=== PATIENT | female | born 1950 | race Caucasian/White ===

== ENCOUNTER 2016-12-25 12:53 | Inpatient (IN) | payer MEDICARE ==
[~2016-12-25] VITALS: Ht 152.4 cm; Wt 65.2 kg
[2016-12-25] VITALS (7 sets, daily range): BP systolic 118–168; BP diastolic 57–93; PULSE 109–123; RESP 18–22; TEMP 98.8–102.4; O2SAT 94–96
[~2016-12-25 12:53] MED LIST: DEXA1TAB PO; LEVE500 PO; LISI10TA3 PO; PANT40TA3 PO; SUPETAB20 PO; XARE10TA PO
--- NOTE | 2016-12-25 13:12 | PD ---
HPI Chief Complaint: Respiratory Distress Time Seen by Provider: 13:12 Travel History International Travel<30 days: No Contact w/Intl Traveler<30days: No Traveled to known affect area: No PFSH Past Medical History Hx Anticoagulant Therapy: Yes (XARELTO) Arthritis: No Asthma: No Autoimmune Disease: No Heart Rhythm Problems: No Cancer: Yes (LUNG) Cardiovascular Problems: Yes Chemotherapy: Yes Chest Pain: No Congestive Heart Failure: No COPD: Yes Cerebrovascular Accident: No Diabetes: No Diminished Hearing: No Endocrine: No Genitourinary: No Hepatitis: No Hiatal Hernia: No Immune Disorder: No Implanted Vascular Access Dvce: Yes (left upper chest wall port) Musculoskeletal: Yes Neurologic: Yes (APHASIA, RADIATION NECROSIS) Psychiatric: No Reproductive: No Respiratory: Yes Immunizations Current: Yes Migraines: No Radiation Therapy: Yes Seizures: Yes (2014 SEIZURE ACTIVITY) Sickle Cell Disease: No Sleep Apnea: No Thyroid Disease: No ?: Not Menopausal: Yes Tubal Ligation: Yes Past Surgical History Abdominal Surgery: No AICD: No Arteriovenous Shunt: No Cardiac Surgery: No Ear Surgery: No Endocrine Surgery: Yes Eye Surgery: No Genitourinary Surgery: No Gynecologic Surgery: Yes (HYSTERECTOMY) Hysterectomy: No Insulin Pump: No Joint Replacement: No Neurologic Surgery: Yes (LEFT BRAIN TUMOR DEC 2013) Oral Surgery: Yes (ROOT CANAL-PAST EVENT) Pacemaker: No Thoracic Surgery: No Tonsillectomy: Yes Other Surgery: Yes (LEFT BRAIN, TUBAL LIGATION, TONSILS) Social History Alcohol Use: No Tobacco Use: No (quit 2013) Substance Use: No Allergies-Medications (Allergen,Severity, Reaction): Coded Allergies: Contrast Media (Verified Allergy, Severe, hives, diff breathing, 11/18/16) Dilantin (Unverified Allergy, Severe, rash, 11/18/16) Iodine (Unverified Allergy, Unknown, 11/18/16) Reported Meds & Prescriptions Reported Meds & Active Scripts Active Lisinopril 10 Mg Tab 10 Mg PO DAILY Keppra (Levetiracetam) 500 Mg Tab 500 Mg PO HS Reported Super B Complex Maxi (B-Complex W/ Folic Acid) 1 Tab 1 Tab PO DAILY Dexamethasone 1 Mg Tab 1 Mg PO DAILY Pantoprazole (Pantoprazole Sodium) 40 Mg Tab 40 Mg PO DAILY Xarelto (Rivaroxaban) 10 Mg Tab 10 Mg PO DAILY Olivia Hernandez Dec 25, 2016 13:12
[2016-12-25] MEDS ORDERED: SODIUM CHLORIDE 0.9% FLUSH 5 ML FLUSH IVF PRN (13:30)
--- NOTE | 2016-12-25 13:34 | PD ---
HPI Chief Complaint: Respiratory Distress Time Seen by Provider: 13:17 Travel History International Travel<30 days: No Contact w/Intl Traveler<30days: No Traveled to known affect area: No History of Present Illness HPI This is a 66 year old female who presents to the emergency department sent from [facility] due to shortness of breath and cough. Pt. has a history of lung cancer and prior pulmonary embolism, and is on Xarelto. Pt. reports last evening she developed a dry cough that has been aggravating her throughout the night and today she felt short of breath, with difficulty catching her breath associated with labored breathing. She also has some chest pain, painful in her chest wall, worse with her cough. She denies a fever. She has been hospitalized with pneumonia in the past. PFSH Past Medical History Hx Anticoagulant Therapy: Yes (XARELTO) Arthritis: No Asthma: No Autoimmune Disease: No Heart Rhythm Problems: No Cancer: Yes (LUNG) Cardiovascular Problems: Yes Chemotherapy: Yes Chest Pain: No Congestive Heart Failure: No COPD: Yes Cerebrovascular Accident: No Diabetes: No Diminished Hearing: No Endocrine: No Genitourinary: No Hepatitis: No Hiatal Hernia: No Immune Disorder: No Implanted Vascular Access Dvce: Yes (left upper chest wall port) Musculoskeletal: Yes Neurologic: Yes (APHASIA, RADIATION NECROSIS) Psychiatric: No Reproductive: No Respiratory: Yes Immunizations Current: Yes Migraines: No Radiation Therapy: Yes Seizures: Yes (2014 SEIZURE ACTIVITY) Sickle Cell Disease: No Sleep Apnea: No Thyroid Disease: No ?: Not Menopausal: Yes Tubal Ligation: Yes Past Surgical History Abdominal Surgery: No AICD: No Arteriovenous Shunt: No Cardiac Surgery: No Ear Surgery: No Endocrine Surgery: Yes Eye Surgery: No Genitourinary Surgery: No Gynecologic Surgery: Yes (HYSTERECTOMY) Hysterectomy: No Insulin Pump: No Joint Replacement: No Neurologic Surgery: Yes (LEFT BRAIN TUMOR DEC 2013) Oral Surgery: Yes (ROOT CANAL-PAST EVENT) Pacemaker: No Thoracic Surgery: No Tonsillectomy: Yes Other Surgery: Yes (LEFT BRAIN, TUBAL LIGATION, TONSILS) Social History Alcohol Use: No Tobacco Use: No (quit 2013) Substance Use: No Allergies-Medications (Allergen,Severity, Reaction): Coded Allergies: Contrast Media (Verified Allergy, Severe, hives, diff breathing, 12/25/16) Dilantin (Unverified Allergy, Severe, rash, 12/25/16) Iodine (Unverified Allergy, Unknown, 12/25/16) Reported Meds & Prescriptions Reported Meds & Active Scripts Active Lisinopril 10 Mg Tab 10 Mg PO DAILY Keppra (Levetiracetam) 500 Mg Tab 500 Mg PO HS Reported Super B Complex Maxi (B-Complex W/ Folic Acid) 1 Tab 1 Tab PO DAILY Dexamethasone 1 Mg Tab 1 Mg PO DAILY Pantoprazole (Pantoprazole Sodium) 40 Mg Tab 40 Mg PO DAILY Xarelto (Rivaroxaban) 10 Mg Tab 10 Mg PO DAILY Review of Systems Except as stated in HPI: all other systems reviewed are Neg Physical Exam Narrative GENERAL:Frail SKIN: Warm and dry. HEAD: Atraumatic. Normocephalic. EYES: Pupils equal and round. No injection or drainage. ENT: Moist mucous membranes NECK: Trachea midline. CARDIOVASCULAR: Regular rate and rhythm. No murmur appreciated. RESPIRATORY: Tachypnea with diffuse rhonchi, increased work of breathing GASTROINTESTINAL: Abdomen soft, non-tender, nondistended. MUSCULOSKELETAL: No obvious deformities. NEUROLOGICAL: Oriented to person and place. No obvious cranial nerve deficits. Moving all extremities. expressive aphasia. Data Data Last Documented VS Vital Signs Date Time Temp Pulse Resp B/P Pulse Ox O2 Delivery O2 Flow Rate FiO2 12/25/16 14:35 102.4 12/25/16 13:37 118 20 168/93 96 Nasal Cannula 2 Orders Complete Blood Count With Diff (12/25/16 13:21) Comprehensive Metabolic Panel (12/25/16 13:21) B-Type Natriuretic Peptide (12/25/16 13:21) Act Partial Throm Time (Ptt) (12/25/16 13:21) Prothrombin Time / Inr (Pt) (12/25/16 13:21) Troponin I (12/25/16 13:21) Iv Access Insert/Monitor (12/25/16 13:21) Ecg Monitoring (12/25/16 13:21) Oximetry (12/25/16 13:21) Oxygen Administration (12/25/16 13:21) Chest, Single Ap (12/25/16 13:21) Sodium Chloride 0.9% Flush (Ns Flush) (12/25/16 13:30) Blood Culture (12/25/16 14:27) Lactic Acid (12/25/16 14:27) Vancomycin Inj (Vancomycin Inj) (12/25/16 14:30) Cefepime Inj (Maxipime Inj) (12/25/16 14:30) Urinalysis - C+S If Indicated (12/25/16 14:27) Influenzae A/B Antigen (12/25/16 14:30) Sodium Chlor 0.9% 1000 Ml Inj (Ns 1000 M (12/25/16 14:45) Sodium Chlor 0.9% 1000 Ml Inj (Ns 1000 M (12/25/16 14:45) Acetaminophen (Tylenol) (12/25/16 15:00) Vancomycin Inj (Vancomycin Inj) (12/25/16 15:00) Admit Order (Ed Use Only) (12/25/16 16:03) Labs Laboratory Tests Test 12/25/16 12/25/16 14:32 14:45 White Blood Count 4.8 TH/MM3 Red Blood Count 3.96 MIL/MM3 Hemoglobin 13.3 GM/DL Hematocrit 39.1 % Mean Corpuscular Volume 98.8 FL Mean Corpuscular Hemoglobin 33.6 PG Mean Corpuscular Hemoglobin 34.0 % Concent Red Cell Distribution Width 16.3 % Platelet Count 203 TH/MM3 Mean Platelet Volume 7.9 FL Neutrophils (%) (Auto) 77.5 % Lymphocytes (%) (Auto) 12.7 % Monocytes (%) (Auto) 8.0 % Eosinophils (%) (Auto) 0.2 % Basophils (%) (Auto) 1.6 % Neutrophils # (Auto) 3.7 TH/MM3 Lymphocytes # (Auto) 0.6 TH/MM3 Monocytes # (Auto) 0.4 TH/MM3 Eosinophils # (Auto) 0.0 TH/MM3 Basophils # (Auto) 0.1 TH/MM3 CBC Comment DIFF FINAL Differential Comment Prothrombin Time 11.9 SEC Prothromb Time International 1.1 RATIO Ratio Activated Partial 21.8 SEC Thromboplast Time Sodium Level 135 MEQ/L Potassium Level 4.2 MEQ/L Chloride Level 102 MEQ/L Carbon Dioxide Level 26.9 MEQ/L Anion Gap 6 MEQ/L Blood Urea Nitrogen 8 MG/DL Creatinine 0.76 MG/DL Estimat Glomerular Filtration 76 ML/MIN Rate Random Glucose 89 MG/DL Calcium Level 8.6 MG/DL Total Bilirubin 0.7 MG/DL Aspartate Amino Transf 56 U/L (AST/SGOT) Alanine Aminotransferase 40 U/L (ALT/SGPT) Alkaline Phosphatase 67 U/L Troponin I LESS THAN 0.02 NG/ML B-Type Natriuretic Peptide 42 PG/ML Total Protein 6.8 GM/DL Albumin 3.4 GM/DL Lactic Acid Level 1.0 mmol/L MDM Medical Decision Making Medical Screen Exam Complete: Yes Emergency Medical Condition: Yes Medical Record Reviewed: Yes (history of non-small cell lung cancer previously on chemotherapy by Dr. Weston.) Interpretation(s) Fever, tachycardia, hypoxic on room air, 94% on 2 L nasal cannula No leukocytosis Left shift Electrolytes are reassuring Troponin is normal BNP is normal Lactic acid is 1 Chest x-ray: Mild airspace disease in the right Differential Diagnosis Pneumonia, sepsis, pulmonary embolism, urinary tract infection Narrative Course This is a 66-year-old female who presents to the emergency department who has a history of non-small cell lung cancer. She evidently was told yesterday that she had a PET scan with more metastatic disease and she is going to be started on a new immune therapy by Dr. Weston. She is been increasingly short of breath over the past 2 days. She was placed on a monitor and an IV was established. She was found to have a fever of 102.4. Labs were obtained which demonstrated a left shift but are otherwise reassuring. Influenza was negative. Chest x- ray demonstrates some right sided lower airspace disease which may reflect pneumonia. Patient was given broad-spectrum antibiotics. Her and her daughter are pretty unclear as to when the last time she was on chemotherapy was. I think patient requires admission for continued antibiotics and monitoring. There was concern for pulmonary embolism on this patient. She is on Xarelto. Given the presence of fever a think it's less likely that her symptoms are being caused by a pulmonary embolism and more likely that they are infectious. I think it's reasonable to defer further imaging if she improves. She has an iodinated contrast allergy so we would need to pretreat her with steroids and Benadryl. Diagnosis Primary Impression: Sepsis Qualified Code: A41.9 - Sepsis, due to unspecified organism Admitting Information Admitting Physician Requests: it Peggy Sharma MD Dec 25, 2016 13:33
[2016-12-25] MEDS ORDERED: VANCOMYCIN INJ 1,000 MG in SODIUM CHLOR 0.9% 250 ML INJ 250 ML IV ONE ×2 (14:30→15:00)
[2016-12-25] MEDS ORDERED: CEFEPIME INJ 2,000 MG in SODIUM CHLORIDE 0.9% INJ 100 ML IV ONE (14:30)
--- NOTE | 2016-12-25 14:38 | RADRPT ---
EXAM DATE/TIME: 12/25/2016 14:07 [facility] COMPARISON: CHEST SINGLE AP, September 07, 2016, 3:48. INDICATIONS : Shortness of breath. MEDICAL HISTORY : Chronic obstructive pulmonary disease. Carcinoma, lung. SURGICAL HISTORY : [place] ENCOUNTER: Initial ACUITY: 1 day PAIN SCORE: Non-responsive. LOCATION: Bilateral chest FINDINGS: Minimal airspace disease is seen in the right lung base. Emphysematous changes are seen in the upper lung soto. There is no significant consolidation or evidence of congestion. Heart and mediastinal structures are stable. Left side [id number] remains in place. CONCLUSION: Mild air space disease right lung base which has the appearance of atelectasis. No other significant abnormality. Anthony Vásquez MD on December 25, 2016 at 14:35 Board Certified Radiologist. This report was verified electronically.
[2016-12-25 14:41] LABS: AUTOMATED NEUTROPHIL # 3.7 TH/MM3 (1.8-7.7); BASOPHIL # 0.1 TH/MM3 (0-0.2); BASOPHIL % 1.6 % (0.0-2.0); EOSINOPHIL % 0.2 % (0.0-4.0); HEMATOCRIT 39.1 % (35.0-46.0); HEMO FLAGS DIFF FINAL; LYMPH % 12.7 % (9.0-44.0); LYMPHOCYTE # 0.6 TH/MM3 (1.0-4.8); MEAN CELL VOLUME 98.8 FL (80.0-100.0); MEAN CORPUSCULAR HEMOGLOBIN 33.6 PG (27.0-34.0); NEUT % 77.5 % (16.0-70.0); PLATELET COUNT 203 TH/MM3 (150-450); RED BLOOD COUNT 3.96 MIL/MM3 (4.00-5.30); RED CELL DISTRIBUTION WIDTH 16.3 % (11.6-17.2); WHITE BLOOD COUNT 4.8 TH/MM3 (4.0-11.0)
[2016-12-25] MEDS ORDERED: SODIUM CHLOR 0.9% 1000 ML INJ 1,000 ML IV SCH ×2 (14:45)
[2016-12-25 14:55] LABS: INTERNATIONAL NORMALIZED RATIO 1.1 RATIO; PROTHROMBIN TIME - PATIENT 11.9 SEC (9.8-11.6)
[2016-12-25 15:00] LABS: APTT (PATIENT) 21.8 SEC (24.3-30.1)
[2016-12-25] MEDS ORDERED: ACETAMINOPHEN 500 MG CPLT PO ONE (15:00)
[2016-12-25 15:35] LABS: ALKALINE PHOSPHATASE 67 U/L (45-117); ALT (GPT) 40 U/L (10-53); ANION GAP 6 MEQ/L (5-15); AST (GOT) 56 U/L (15-37); BICARBONATE 26.9 MEQ/L (21.0-32.0); BLOOD UREA NITROGEN 8 MG/DL (7-18); CHLORIDE 102 MEQ/L (98-107); GLOMERULAR FILTRATION RATE 76 ML/MIN (>89); SODIUM (NA) 135 MEQ/L (136-145); TOTAL BILIRUBIN ADULT 0.7 MG/DL (0.2-1.0)
[2016-12-25 15:38] LABS: POTASSIUM 4.2 MEQ/L (3.5-5.1)
[2016-12-25] MEDS ORDERED: ONDANSETRON HCL 4 MG/2 ML VIAL IVP PRN (16:30)
[2016-12-25] MEDS ORDERED: MAGNESIUM HYDROXIDE SUSP 30 ML CUP PO PRN (16:30)
[2016-12-25] MEDS ORDERED: NALOXONE HCL 0.4 MG/ML AMP IV PRN (16:30)
[2016-12-25] MEDS ORDERED: BISACODYL 10 MG SUPP PR PRN (16:30)
--- NOTE | 2016-12-25 16:50 | HHI.HP ---
HPI Service CP Hospitalists Primary Care Physician Non-Staff Admission Diagnosis sepsis Chief Complaint: Cough and SOB Travel History International Travel<30 Days: No Contact w/Intl Traveler <30 Da: No Traveled to Known Affected Are: No History of Present Illness Mrs. Romero is a 66 y/o female with metastatic non-small cell lung cancer s/p craniotomy with stereotactic radiation in 2013 and radiation therapy to the lung in 2013, previously found to have disease in the chest outside the previous radiation field and was treated with chemo and is on maintenance chemo with Alimta and Avastin. Pt follows with Dr. Weston. She also has hx of radiation necrosis of the brain in 2014 and pulmonary embolism on Xarelto. Pt was recently admitted to [facility] in 10/2016 with expressive aphasia. MRI findings at that time were felt to be stable from April 2016 but diffusion weighted images were still of concern for an acute CVA event in left frontal lobe near surgical bed. EEG at that time also showed epileptiform spikes and was treated as seizure activity and Keppra was added by Neurology. Pt states that she was seen by her Oncologist, Dr. Weston, yesterday for followup on PET/CT results but these are unavailable to me at this time. Pt presented to the ED on 12/25/16 from [facility] due to shortness of breath and cough which started last night. Pt reported yesterday evening she developed a dry cough that has been aggravating her throughout the night and today she felt short of breath, with difficulty catching her breath associated with labored breathing. She also has some chest wall discomfort which is worse with coughing. Pt had a noted fever at admission of 102.4. CXR at admission noted mild air space disease right lung base which has the appearance of atelectasis. She was given Vancomycin and Cefepime in the ER. At the time of examination pt is overall feeling better. Still with the cough but not feeling as SOB. Review of Systems Constitutional: COMPLAINS OF: Fever, Chills Respiratory: COMPLAINS OF: Cough, Shortness of breath Cardiovascular: COMPLAINS OF: Chest pain, DENIES: Palpitations, Dyspnea on Exertion, Lower Extremity Edema Gastrointestinal: DENIES: Abdominal pain, Constipation, Nausea, Vomiting Genitourinary: DENIES: Urinary frequency, Hematuria, Dysuria Integumentary: DENIES: Rash Neurologic: COMPLAINS OF: Speech Problems, DENIES: Headache Psychiatric: DENIES: Confusion Past Family Social History Past Medical History Metastatic Non-small cell lung cancer s/p craniotomy with stereotactic radiation in 2014 and radiation therapy to the lung in 2013. Recently found to have disease in the chest outside the previous radiation field and was treated with chemo and is on maintenance chemo. Hx of radiation necrosis of the brain in 2014 Pulmonary embolism on Xarelto GERD Past Surgical History Craniotomy in 2013 [id number] placement in 2014 Tonsillectomy Dilation and curettage Bilateral tubal ligation Reported Medications Lisinopril 10 Mg Tab 10 Mg PO DAILY Keppra (Levetiracetam) 500 Mg Tab 500 Mg PO HS Super B Complex Maxi (B-Complex W/ Folic Acid) 1 Tab 1 Tab PO DAILY Dexamethasone 1 Mg Tab 1 Mg PO DAILY Pantoprazole (Pantoprazole Sodium) 40 Mg Tab 40 Mg PO DAILY Xarelto (Rivaroxaban) 10 Mg Tab 10 Mg PO DAILY Allergies: Coded Allergies: Contrast Media (Verified Allergy, Severe, hives, diff breathing, 12/25/16) Dilantin (Unverified Allergy, Severe, rash, 12/25/16) Iodine (Unverified Allergy, Unknown, 12/25/16) Family History Noncontributory Social History Denies any alcohol, tobacco or illicit drug use Physical Exam Vital Signs Vital Signs Date Time Temp Pulse Resp B/P Pulse Ox O2 Delivery O2 Flow Rate FiO2 12/25/16 16:06 100.0 123 18 138/65 94 Nasal Cannula 2 12/25/16 14:35 102.4 12/25/16 13:37 118 20 168/93 96 Nasal Cannula 2 12/25/16 13:37 22 96 Nasal Cannula 2 12/25/16 13:37 114 22 94 Nasal Cannula 2 12/25/16 13:37 96 Nasal Cannula 2 Physical Exam GENERAL: This is a well-nourished, well-developed patient, in no apparent distress. HEENT: Atraumatic. Normocephalic. No temporal or scalp tenderness. No scleral icterus. Airway patent. NECK: Trachea midline, supple, nontender. CARDIO: Regular. RESP: Rhonchi throughout that cleared with cough, diminished breath sounds bilaterally ABD: +BS, soft, non-tender, nondistended. EXT: Extremities without clubbing, cyanosis, or edema. NEURO: Awake and alert. Mild expressive aphasia. Five out of 5 muscle strength in all muscle groups. Laboratory Laboratory Tests Test 12/25/16 12/25/16 14:32 14:45 White Blood Count 4.8 Red Blood Count 3.96 Hemoglobin 13.3 Hematocrit 39.1 Mean Corpuscular Volume 98.8 Mean Corpuscular Hemoglobin 33.6 Mean Corpuscular Hemoglobin 34.0 Concent Red Cell Distribution Width 16.3 Platelet Count 203 Mean Platelet Volume 7.9 Neutrophils (%) (Auto) 77.5 Lymphocytes (%) (Auto) 12.7 Monocytes (%) (Auto) 8.0 Eosinophils (%) (Auto) 0.2 Basophils (%) (Auto) 1.6 Neutrophils # (Auto) 3.7 Lymphocytes # (Auto) 0.6 Monocytes # (Auto) 0.4 Eosinophils # (Auto) 0.0 Basophils # (Auto) 0.1 CBC Comment DIFF FINAL Differential Comment Prothrombin Time 11.9 Prothromb Time International 1.1 Ratio Activated Partial 21.8 Thromboplast Time Sodium Level 135 Potassium Level 4.2 Chloride Level 102 Carbon Dioxide Level 26.9 Anion Gap 6 Blood Urea Nitrogen 8 Creatinine 0.76 Estimat Glomerular Filtration 76 Rate Random Glucose 89 Calcium Level 8.6 Total Bilirubin 0.7 Aspartate Amino Transf 56 (AST/SGOT) Alanine Aminotransferase 40 (ALT/SGPT) Alkaline Phosphatase 67 Troponin I LESS THAN 0.02 B-Type Natriuretic Peptide 42 Total Protein 6.8 Albumin 3.4 Lactic Acid Level 1.0 Date/Time Procedure Status Source Growth 12/25/16 15:30 Influenza Types A,B Antigen (STANISLAV) - Final Complete Nasal Washing NEGATIVE FOR FLU A AND B ANTIGEN.... 12/25/16 14:54 Aerobic Blood Culture Received Blood Peripheral Pending 12/25/16 14:54 Anaerobic Blood Culture Received Blood Peripheral Pending Result Diagram: 12/25/16 1432 12/25/16 1432 Imaging Last Impressions Chest X-Ray 12/25/16 1321 Signed Impressions: Service Date/Time: December 14:07 - CONCLUSION: Mild air space disease right lung base which has the appearance of atelectasis. No other significant abnormality. Anthony Vásquez MD Septic Shock Reassessment Heart: Regular rate and rhythm Lungs: Course Skin: Warm Capillary Refill: <2 seconds Assessment and Plan Problem List: (1) Pneumonia Status: Acute Plan: - Pt presented to the ED on 12/25/16 with complaints of shortness of breath and cough which started last night. - Pt reported yesterday evening she developed a dry cough that has been aggravating her throughout the night and today she felt short of breath, with difficulty catching her breath associated with labored breathing. - She also has some chest wall discomfort which is worse with coughing. - Pt had a noted fever at admission of 102.4. - CXR at admission noted mild air space disease right lung base which has the appearance of atelectasis. - She was given Vancomycin and Cefepime in the ER. - Vancomycin and Cefepime to be continued - Duonebs PRN - IVF - At the time of examination pt is overall feeling better. Still with the cough but not feeling as SOB. - Blood culture and sputum cultures ordered - Urine for legionella and pneumococcal Ab - Labs in AM - CXR in AM - Supportive care - DVT prophylaxis (2) Non-small cell carcinoma of lung, stage 4 Status: Chronic Plan: - Pt with metastatic Non-small cell lung cancer s/p craniotomy with stereotactic radiation in 2013 and radiation therapy to the lung in 2014. Recently found to have disease in the chest outside the previous radiation field and was treated with chemo and is on maintenance chemo. - Pt follows with Dr. Weston and he was informed on her admission but not formally consulted at this time. (3) HTN (hypertension) Status: Chronic Plan: - Cont. Lisinopril - Monitor vitals (4) Seizure Status: Chronic Plan: - Cont. Keppra - Check levels (5) Hx pulmonary embolism Status: Chronic Plan: - Cont. Xarelto Assessment and Plan Patient examined. Assessment and plan formulated with Tonie Lassiter PA-C. I agree with the above. Physician Certification 2 Midnight Certification Type: Admission for Inpatient Services Order for Inpatient Services The services are ordered in accordance with Medicare regulations or non- Medicare payer requirements, as applicable. In the case of services not specified as inpatient-only, they are appropriately provided as inpatient services in accordance with the 2-midnight benchmark. Estimated LOS (days): 3 3 days is the estimated time the patient will need to remain in the hospital, assuming treatment plan goals are met and no additional complications. Post-Hospital Plan: Not yet determined Tonie Lassiter Dec 25, 2016 16:50 Roque Lucas DO Dec 31, 2016 08:29
[2016-12-25] MEDS: NS + KCL 20 MEQ INJ 1,000 ML IV SCH (17:33)
[2016-12-25] MEDS: SODIUM CHLORIDE 0.9% FLUSH 5 ML FLUSH FLUSH SCH (21:00)
[2016-12-25] MEDS: levETIRAcetam 500 MG TAB PO SCH (21:06)
[2016-12-26] VITALS (10 sets, daily range): BP systolic 94–185; BP diastolic 54–80; PULSE 94–137; RESP 18–23; TEMP 95.4–103.3; O2SAT 92–100
[2016-12-26] MEDS: NS + KCL 20 MEQ INJ 1,000 ML IV SCH (04:25)
[2016-12-26] MEDS: ACETAMINOPHEN 325 MG TAB PO PRN (05:47)
[2016-12-26] MEDS: CEFEPIME INJ 1,000 MG in SODIUM CHLORIDE 0.9% INJ 100 ML IV SCH ×2 (05:47→17:53)
[2016-12-26] MEDS: VANCOMYCIN INJ 1,000 MG in SODIUM CHLOR 0.9% 250 ML INJ 250 ML IV SCH ×2 (05:48→17:53)
[2016-12-26 07:17] LABS: AUTOMATED NEUTROPHIL # 3.8 TH/MM3 (1.8-7.7); BASOPHIL % 0.5 % (0.0-2.0); EOSINOPHIL % 0.1 % (0.0-4.0); HEMATOCRIT 38.5 % (35.0-46.0); HEMO FLAGS DIFF FINAL; LYMPH % 13.5 % (9.0-44.0); LYMPHOCYTE # 0.7 TH/MM3 (1.0-4.8); MEAN CELL VOLUME 95.9 FL (80.0-100.0); MEAN CORPUSCULAR HEMOGLOBIN 33.5 PG (27.0-34.0); MEAN CORPUSCULAR HGB CONC 34.9 % (32.0-36.0); MONO % 16.1 % (0.0-8.0); NEUT % 69.8 % (16.0-70.0); PLATELET COUNT 150 TH/MM3 (150-450); RED BLOOD COUNT 4.02 MIL/MM3 (4.00-5.30); RED CELL DISTRIBUTION WIDTH 16.4 % (11.6-17.2); WHITE BLOOD COUNT 5.5 TH/MM3 (4.0-11.0)
[2016-12-26 07:31] LABS: BICARBONATE 23.1 MEQ/L (21.0-32.0); MAGNESIUM 1.6 MG/DL (1.5-2.5); POTASSIUM 3.2 MEQ/L (3.5-5.1)
--- NOTE | 2016-12-26 09:55 | RADRPT ---
EXAM DATE/TIME: 12/26/2016 09:31 [facility] COMPARISON: CHEST PA & LAT, September 08, 2016, 8:42. INDICATIONS : Short of breath. MEDICAL HISTORY : Chronic obstructive pulmonary disease. Carcinoma, lung. SURGICAL HISTORY : [place] ENCOUNTER: Subsequent ACUITY: 2 days PAIN SCORE: 0/10 LOCATION: Bilateral chest FINDINGS: PA and lateral views of the chest. Left-sided [id number]-[id number] remains in place. Bilateral lower lung zo ne pulmonary parenchymal opacity with predominantly linear configuration, slightly increased in sever ity at the right lung base, unchanged on the left. No evidence of pleural effusion or pneumothorax. C ardiomediastinal silhouette within normal limits. CONCLUSION: Chronic lower lung zone parenchymal pulmonary opacity indicating scarring or chronic lung disease. Sl ight increase on the right, unchanged on the left. Vicente Decker MD on December 26, 2016 at 9:51 Board Certified Radiologist. This report was verified electronically.
[2016-12-26] MEDS: LISINOPRIL 10 MG TAB PO SCH (10:23)
[2016-12-26] MEDS: DEXAMETHASONE 0.5 MG TAB PO SCH (10:23)
[2016-12-26] MEDS: SODIUM CHLORIDE 0.9% FLUSH 5 ML FLUSH FLUSH SCH ×2 (10:23→21:00)
[2016-12-26] MEDS: RIVAROXABAN 10 MG TAB PO SCH (10:24)
[2016-12-26] MEDS: VITAMIN B CMPLX/VITC/FOLIC AC CAP PO SCH (10:24)
[2016-12-26] MEDS: PANTOPRAZOLE SOD 40 MG DELAYED RELEASE TAB PO SCH (10:24)
--- NOTE | 2016-12-26 13:45 | HHI.PR ---
Subjective Remarks decreased cough and SOB Objective Vitals Vital Signs Date Time Temp Pulse Resp B/P Pulse Ox O2 Delivery O2 Flow Rate FiO2 12/26/16 12:10 95.4 94 20 94/54 100 12/26/16 10:01 93 Nasal Cannula 3.00 12/26/16 08:08 98.7 119 20 117/60 92 12/26/16 07:00 99.1 12/26/16 06:16 101.1 12/26/16 05:30 103.3 120 23 169/79 93 12/26/16 00:30 100.3 115 23 185/80 95 12/25/16 19:46 98.8 109 18 139/68 96 Nasal Cannula 2 12/25/16 19:08 94 Nasal Cannula 2.00 12/25/16 17:31 112 18 118/57 94 Nasal Cannula 2 12/25/16 16:57 94 Nasal Cannula 2.00 12/25/16 16:06 100.0 123 18 138/65 94 Nasal Cannula 2 12/25/16 14:35 102.4 12/25/16 12/25/16 12/26/16 14:59 22:59 06:59 Intake Total 0 ml Balance 0 ml Intake Oral 0 ml # Voids 2 # Bowel Movements 0 Result Diagram: 12/26/16 0644 12/26/16 0644 Imaging Last Impressions Chest X-Ray 12/25/16 1321 Signed Impressions: Service Date/Time: December 14:07 - CONCLUSION: Mild air space disease right lung base which has the appearance of atelectasis. No other significant abnormality. Anthony Vásquez MD Objective Remarks GENERAL: This is a well-nourished, well-developed patient, in no apparent distress. CARDIOVASCULAR: Regular rate and rhythm without murmurs, gallops, or rubs. RESPIRATORY: Clear to auscultation. Breath sounds equal bilaterally. No wheezes , rales, or rhonchi. GASTROINTESTINAL: Abdomen soft, non-tender, nondistended. Normal active bowel sounds MUSCULOSKELETAL: Extremities without clubbing, cyanosis, or edema. NEURO: Alert & Oriented x4 to person, place, time, situation. Moves all ext x4 A/P Problem List: (1) Pneumonia Status: Acute Plan: - Pt presented to the ED on 12/25/16 with complaints of shortness of breath and cough which started last night. - Pt reported yesterday evening she developed a dry cough that has been aggravating her throughout the night and today she felt short of breath, with difficulty catching her breath associated with labored breathing. - She also has some chest wall discomfort which is worse with coughing. - Pt had a noted fever at admission of 102.4. - CXR at admission noted mild air space disease right lung base which has the appearance of atelectasis. - She was given Vancomycin and Cefepime in the ER. - CXR (12/26/16) --> chronic bibasilar scarring - continue Vancomycin and Cefepime (12/25 - present) - if pt remains stable, will likely convert to PO abx 12/27 and discharge 12/28 - Duonebs PRN - Blood culture (12/25/16) --> NGTD - anticipate d/c to home in next 1-2 days - DVT prophylaxis (2) Non-small cell carcinoma of lung, stage 4 Status: Chronic Plan: - Pt with metastatic Non-small cell lung cancer s/p craniotomy with stereotactic radiation in 2013 and radiation therapy to the lung in 2013. Recently found to have disease in the chest outside the previous radiation field and was treated with chemo and is on maintenance chemo. - Pt follows with Dr. Weston and he was informed on her admission but not formally consulted at this time. (3) HTN (hypertension) Status: Chronic Plan: - Cont. Lisinopril - Monitor vitals (4) Seizure Status: Chronic Plan: - Cont. Keppra - Check levels (5) Hx pulmonary embolism Status: Chronic Plan: - Cont. Roque Mancuso DO Dec 26, 2016 13:45
[2016-12-26] MEDS: RESP: ALBUTEROL 2.5 MG/IPRATROPIUM 0.5 MG NEB (PRN) NEB (14:07)
--- NOTE | 2016-12-26 14:21 | EKG ---
Date Performed: 12/25/2016 Time Performed: 19:41:51 PTAGE: 66 years EKG: SINUS TACHYCARDIA LOW QRS VOLTAGE IN PRECORDIAL LEADS ABNORMAL RHYTHM ECG Compared to PREVIOUS TRACING the anterolateral T wave changes are new PREVIOUS TRACIN11/18/2016 1 0.23 DOCTOR: Krissy Diggs Interpretating Date/Time 12/26/2016 14:20:02
[2016-12-26] MEDS: levETIRAcetam 500 MG TAB PO SCH (22:20)
[2016-12-27] VITALS (7 sets, daily range): BP systolic 108–130; BP diastolic 55–65; PULSE 88–115; RESP 18–20; TEMP 96.7–100.7; O2SAT 93–97
[2016-12-27] MEDS: RESP: ALBUTEROL 2.5 MG/IPRATROPIUM 0.5 MG NEB (PRN) NEB (03:39)
[2016-12-27] MEDS: CEFEPIME INJ 1,000 MG in SODIUM CHLORIDE 0.9% INJ 100 ML IV SCH ×2 (06:27→17:34)
[2016-12-27] MEDS: VANCOMYCIN INJ 1,000 MG in SODIUM CHLOR 0.9% 250 ML INJ 250 ML IV SCH ×2 (06:28→18:22)
[2016-12-27] MEDS: LISINOPRIL 10 MG TAB PO SCH (10:07)
[2016-12-27] MEDS: SODIUM CHLORIDE 0.9% FLUSH 5 ML FLUSH FLUSH SCH ×2 (10:07→22:43)
[2016-12-27] MEDS: DEXAMETHASONE 0.5 MG TAB PO SCH (10:07)
[2016-12-27] MEDS: RIVAROXABAN 10 MG TAB PO SCH (10:07)
[2016-12-27] MEDS: VITAMIN B CMPLX/VITC/FOLIC AC CAP PO SCH (10:07)
[2016-12-27] MEDS: PANTOPRAZOLE SOD 40 MG DELAYED RELEASE TAB PO SCH (10:07)
[2016-12-27] MEDS: ACETAMINOPHEN 325 MG TAB PO PRN (11:48)
--- NOTE | 2016-12-27 14:25 | HHI.PR ---
Subjective Remarks T = 100.7F Pt denies cough, or dysuria. Pt denies fever or chills. Pt is tolerating PO intake. Objective Vitals Vital Signs Date Time Temp Pulse Resp B/P Pulse Ox O2 Delivery O2 Flow Rate FiO2 12/27/16 12:16 100.7 114 20 116/65 96 12/27/16 07:30 97.4 100 20 125/58 94 12/27/16 05:30 99.5 115 18 115/59 94 12/27/16 03:42 97 Nasal Cannula 3.00 12/27/16 00:45 99.9 93 19 108/59 94 12/26/16 20:45 99.0 110 18 150/65 95 12/26/16 16:24 96.5 110 20 103/55 92 12/26/16 14:45 2.00 12/26/16 12/26/16 12/27/16 15:00 23:00 07:00 Intake Total 501 ml 900 ml Balance 501 ml 900 ml Intake Oral 501 ml 900 ml # Voids 2 4 # Bowel Movements 0 0 Result Diagram: 12/26/16 0644 12/26/16 0644 Imaging Last Impressions Chest X-Ray 12/26/16 0800 Signed Impressions: Service Date/Time: Monday, December 26, 2016 09:31 - CONCLUSION: Chronic lower lung zone parenchymal pulmonary opacity indicating scarring or chronic lung disease. Slight increase on the right, unchanged on the left. Vicente Decker MD Objective Remarks GENERAL: This is a well-nourished, well-developed patient, in no apparent distress. CARDIOVASCULAR: Regular rate and rhythm without murmurs, gallops, or rubs. RESPIRATORY: Clear to auscultation. Breath sounds equal bilaterally. No wheezes , rales, or rhonchi. GASTROINTESTINAL: Abdomen soft, non-tender, nondistended. Normal active bowel sounds MUSCULOSKELETAL: Extremities without clubbing, cyanosis, or edema. NEURO: Alert & Oriented x4 to person, place, time, situation. Moves all ext x4 A/P Problem List: (1) Pneumonia Status: Acute Plan: - Pt presented to the ED on 12/25/16 with complaints of shortness of breath and cough which started night prior to admission - Pt reported that the evening prior to admission she developed a dry cough that has been aggravating her throughout the night and today she felt short of breath, with difficulty catching her breath associated with labored breathing. - She also has some chest wall discomfort which is worse with coughing. - Pt had a noted fever at admission of 102.4. - CXR at admission noted mild air space disease right lung base which has the appearance of atelectasis. - She was given Vancomycin and Cefepime in the ER. - CXR (12/26/16) --> chronic bibasilar scarring - continue Vancomycin and Cefepime (12/25 - present) - recurrent fever at Noon (12/27/16) 100.7 - Duonebs PRN - Blood culture (12/25/16) --> no growth at 2 days - continue current treatment plan, observe - DVT prophylaxis (2) Non-small cell carcinoma of lung, stage 4 Status: Chronic Plan: - Pt with metastatic Non-small cell lung cancer s/p craniotomy with stereotactic radiation in 2013 and radiation therapy to the lung in 2013. Recently found to have disease in the chest outside the previous radiation field and was treated with chemo and is on maintenance chemo. - Pt follows with Dr. Weston and he was informed on her admission but not formally consulted at this time. (3) HTN (hypertension) Status: Chronic Plan: - Cont. Lisinopril - Monitor vitals (4) Seizure Status: Chronic Plan: - Cont. Keppra - Check levels (5) Hx pulmonary embolism Status: Chronic Plan: - Cont. Roque Mancuso DO Dec 27, 2016 14:25
[2016-12-27 17:05] LABS: BICARBONATE 24.4 MEQ/L (21.0-32.0); POTASSIUM 3.9 MEQ/L (3.5-5.1)
[2016-12-27] MEDS: levETIRAcetam 500 MG TAB PO SCH (22:43)
[2016-12-28] VITALS (8 sets, daily range): BP systolic 115–142; BP diastolic 64–75; PULSE 84–101; RESP 20; TEMP 96.6–98.7; O2SAT 92–97
[2016-12-28] MEDS: SODIUM CHLORIDE 0.9% FLUSH 5 ML FLUSH FLUSH PRN (05:40)
[2016-12-28] MEDS: CEFEPIME INJ 1,000 MG in SODIUM CHLORIDE 0.9% INJ 100 ML IV SCH ×2 (05:40→17:19)
[2016-12-28] MEDS: VANCOMYCIN INJ 1,000 MG in SODIUM CHLOR 0.9% 250 ML INJ 250 ML IV SCH ×2 (06:43→18:24)
[2016-12-28] MEDS: LISINOPRIL 10 MG TAB PO SCH (09:20)
[2016-12-28] MEDS: SODIUM CHLORIDE 0.9% FLUSH 5 ML FLUSH FLUSH SCH ×2 (09:20→19:37)
[2016-12-28] MEDS: VITAMIN B CMPLX/VITC/FOLIC AC CAP PO SCH (09:21)
[2016-12-28] MEDS: PANTOPRAZOLE SOD 40 MG DELAYED RELEASE TAB PO SCH (09:21)
[2016-12-28] MEDS: DEXAMETHASONE 0.5 MG TAB PO SCH (09:21)
[2016-12-28] MEDS: RIVAROXABAN 10 MG TAB PO SCH (09:21)
[2016-12-28 09:49] LABS: AUTOMATED NEUTROPHIL # 1.9 TH/MM3 (1.8-7.7); BASOPHIL % 0.6 % (0.0-2.0); EOSINOPHIL % 0.4 % (0.0-4.0); HEMATOCRIT 34.5 % (35.0-46.0); HEMO FLAGS DIFF FINAL; LYMPH % 24.2 % (9.0-44.0); LYMPHOCYTE # 0.8 TH/MM3 (1.0-4.8); MEAN CELL VOLUME 97.7 FL (80.0-100.0); MEAN CORPUSCULAR HEMOGLOBIN 32.8 PG (27.0-34.0); MEAN CORPUSCULAR HGB CONC 33.5 % (32.0-36.0); MONO % 14.8 % (0.0-8.0); PLATELET COUNT 147 TH/MM3 (150-450); RED BLOOD COUNT 3.53 MIL/MM3 (4.00-5.30); RED CELL DISTRIBUTION WIDTH 16.2 % (11.6-17.2); WHITE BLOOD COUNT 3.2 TH/MM3 (4.0-11.0)
[2016-12-28] MEDS: RESP: ALBUTEROL 2.5 MG/IPRATROPIUM 0.5 MG NEB (PRN) NEB (10:32)
[2016-12-28 10:49] LABS: BICARBONATE 24.9 MEQ/L (21.0-32.0); POTASSIUM 3.4 MEQ/L (3.5-5.1)
--- NOTE | 2016-12-28 12:39 | HHI.PR ---
Subjective Remarks decreased SOB, decreased cough from admission Objective Vitals Vital Signs Date Time Temp Pulse Resp B/P Pulse Ox O2 Delivery O2 Flow Rate FiO2 12/28/16 10:32 92 Nasal Cannula 2.00 12/28/16 07:59 98.0 84 20 115/75 97 12/28/16 04:39 97.0 86 20 128/73 96 12/28/16 00:34 98.7 101 20 131/75 92 12/27/16 21:52 Nasal Cannula 3.00 12/27/16 20:00 96.7 88 20 113/55 96 12/27/16 15:37 97.0 104 20 130/56 93 12/27/16 12/27/16 12/28/16 15:00 23:00 07:00 Intake Total 111 ml Balance 111 ml IV Total 111 ml # Voids 3 1 # Bowel Movements 1 Result Diagram: 12/28/16 0840 12/28/16 0840 Imaging Last Impressions Chest X-Ray 12/26/16 0800 Signed Impressions: Service Date/Time: Monday, December 26, 2016 09:31 - CONCLUSION: Chronic lower lung zone parenchymal pulmonary opacity indicating scarring or chronic lung disease. Slight increase on the right, unchanged on the left. Vicente Decker MD Objective Remarks GENERAL: This is a well-nourished, well-developed patient, in no apparent distress. CARDIOVASCULAR: Regular rate and rhythm without murmurs, gallops, or rubs. RESPIRATORY: Clear to auscultation. Breath sounds equal bilaterally. No wheezes , rales, or rhonchi. GASTROINTESTINAL: Abdomen soft, non-tender, nondistended. Normal active bowel sounds MUSCULOSKELETAL: Extremities without clubbing, cyanosis, or edema. NEURO: Alert & Oriented x4 to person, place, time, situation. Moves all ext x4 A/P Problem List: (1) Pneumonia Status: Acute Plan: - Pt presented to the ED on 12/25/16 with complaints of shortness of breath and cough which started night prior to admission - Pt reported that the evening prior to admission she developed a dry cough that has been aggravating her throughout the night and today she felt short of breath, with difficulty catching her breath associated with labored breathing. - She also has some chest wall discomfort which is worse with coughing. - Pt had a noted fever at admission of 102.4. - CXR at admission noted mild air space disease right lung base which has the appearance of atelectasis. - She was given Vancomycin and Cefepime in the ER. - CXR (12/26/16) --> chronic bibasilar scarring - continue Vancomycin and Cefepime (12/25 - present), will likely decelerate antibiotic treatment 12/29 - recurrent fever at Noon (12/27/16) 100.7 - Duonebs PRN - Blood culture (12/25/16) --> no growth at 3 days - continue current treatment plan, observe - DVT prophylaxis (2) Non-small cell carcinoma of lung, stage 4 Status: Chronic Plan: - Pt with metastatic Non-small cell lung cancer s/p craniotomy with stereotactic radiation in 2013 and radiation therapy to the lung in 2013. Recently found to have disease in the chest outside the previous radiation field and was treated with chemo and is on maintenance chemo. - Pt follows with Dr. Weston and he was informed on her admission but not formally consulted at this time. (3) HTN (hypertension) Status: Chronic Plan: - Cont. Lisinopril - Monitor vitals (4) Seizure Status: Chronic Plan: - Cont. Keppra - keppra level subtherapeutic 4.5 (12/26/16) - repeat keppra level in AM, consider increasing current dose (5) Hx pulmonary embolism Status: Chronic Plan: - Cont. Roque Mancuso DO Dec 28, 2016 12:39
[2016-12-28] MEDS ORDERED: POTASSIUM CHLORIDE 20 MEQ CONTROLLED RELEASE TAB PO ONE (12:45)
[2016-12-28] MEDS: levETIRAcetam 500 MG TAB PO SCH (19:37)
[2016-12-29] VITALS (8 sets, daily range): BP systolic 125–168; BP diastolic 63–88; PULSE 88–109; RESP 20; TEMP 95.6–98.8; O2SAT 93–97
[2016-12-29] MEDS: SODIUM CHLORIDE 0.9% FLUSH 5 ML FLUSH FLUSH PRN (05:42)
[2016-12-29] MEDS: CEFEPIME INJ 1,000 MG in SODIUM CHLORIDE 0.9% INJ 100 ML IV SCH (05:42)
[2016-12-29] MEDS: VANCOMYCIN INJ 1,000 MG in SODIUM CHLOR 0.9% 250 ML INJ 250 ML IV SCH (06:37)
[2016-12-29 08:01] LABS: AUTOMATED NEUTROPHIL # 1.5 TH/MM3 (1.8-7.7); BASOPHIL % 0.3 % (0.0-2.0); EOSINOPHIL % 0.8 % (0.0-4.0); HEMATOCRIT 33.8 % (35.0-46.0); HEMO FLAGS DIFF FINAL; LYMPH % 28.1 % (9.0-44.0); LYMPHOCYTE # 0.8 TH/MM3 (1.0-4.8); MEAN CORPUSCULAR HEMOGLOBIN 33.3 PG (27.0-34.0); MONO % 15.4 % (0.0-8.0); NEUT % 55.4 % (16.0-70.0); PLATELET COUNT 133 TH/MM3 (150-450); RED BLOOD COUNT 3.46 MIL/MM3 (4.00-5.30); WHITE BLOOD COUNT 2.8 TH/MM3 (4.0-11.0)
[2016-12-29 08:30] LABS: BICARBONATE 27.7 MEQ/L (21.0-32.0); MAGNESIUM 1.9 MG/DL (1.5-2.5); POTASSIUM 3.5 MEQ/L (3.5-5.1)
[2016-12-29] MEDS: SODIUM CHLORIDE 0.9% FLUSH 5 ML FLUSH FLUSH SCH ×2 (09:00→21:20)
[2016-12-29] MEDS: DEXAMETHASONE 0.5 MG TAB PO SCH (09:14)
[2016-12-29] MEDS: RIVAROXABAN 10 MG TAB PO SCH (09:14)
[2016-12-29] MEDS: PANTOPRAZOLE SOD 40 MG DELAYED RELEASE TAB PO SCH (09:15)
[2016-12-29] MEDS: LISINOPRIL 10 MG TAB PO SCH (09:15)
[2016-12-29] MEDS: VITAMIN B CMPLX/VITC/FOLIC AC CAP PO SCH (09:15)
--- NOTE | 2016-12-29 09:18 | RADRPT ---
EXAM DATE/TIME: 12/29/2016 08:02 [facility] COMPARISON: CHEST PA & LAT, December 26, 2016, 9:31. INDICATIONS: Pneumonia MEDICAL HISTORY: Chronic obstructive pulmonary disease. Carcinoma, lung. SURGICAL HISTORY: Infusaport insertion ENCOUNTER: Subsequent ACUITY: 3 days PAIN SCORE: 0/10 LOCATION: Bilateral upper chest FINDINGS: Left subclavian [id number] has its tip in the superior vena cava. There is no significant change in the streaky densities within both lung bases (right slightly worse than left). The heart is stabl e. There is a tiny right pleural effusion. CONCLUSION: 1. No significant change in the bibasilar streakiness (right worse than left). 2. Tiny right pleural effusion. Juan Worley MD on December 29, 2016 at 8:56 Board Certified Radiologist. This report was verified electronically.
--- NOTE | 2016-12-29 10:38 | HHI.PR ---
Subjective Remarks Pt reports that she still feels SOB with ambulation Objective Vitals Vital Signs Date Time Temp Pulse Resp B/P Pulse Ox O2 Delivery O2 Flow Rate FiO2 12/29/16 08:00 95.6 88 20 138/88 97 12/29/16 05:01 98.0 90 20 125/75 93 12/29/16 00:17 98.8 91 20 135/80 96 12/28/16 20:32 96.8 86 20 126/71 96 12/28/16 20:16 95 Nasal Cannula 2.00 12/28/16 15:49 97.7 96 20 117/65 96 12/28/16 12:39 96.6 96 20 142/64 97 12/28/16 10:32 92 Nasal Cannula 2.00 Result Diagram: 12/29/16 0657 12/29/16 0657 Other Results Laboratory Tests Test 12/27/16 12/28/16 12/29/16 16:38 08:40 06:57 Sodium Level 137 MEQ/L 141 MEQ/L 140 MEQ/L Potassium Level 3.9 MEQ/L 3.4 MEQ/L 3.5 MEQ/L Chloride Level 104 MEQ/L 105 MEQ/L 105 MEQ/L Carbon Dioxide Level 24.4 MEQ/L 24.9 MEQ/L 27.7 MEQ/L Anion Gap 9 MEQ/L 11 MEQ/L 7 MEQ/L Blood Urea Nitrogen 10 MG/DL 10 MG/DL 12 MG/DL Creatinine 0.64 MG/DL 0.43 MG/DL 0.40 MG/DL Estimat Glomerular Filtration 93 ML/MIN 147 ML/MIN 160 ML/MIN Rate Random Glucose 173 MG/DL 108 MG/DL 85 MG/DL Calcium Level 8.6 MG/DL 7.9 MG/DL 8.0 MG/DL Magnesium Level 2.0 MG/DL 2.0 MG/DL 1.9 MG/DL White Blood Count 3.2 TH/MM3 2.8 TH/MM3 Red Blood Count 3.53 MIL/MM3 3.46 MIL/MM3 Hemoglobin 11.6 GM/DL 11.5 GM/DL Hematocrit 34.5 % 33.8 % Mean Corpuscular Volume 97.7 FL 98.0 FL Mean Corpuscular Hemoglobin 32.8 PG 33.3 PG Mean Corpuscular Hemoglobin 33.5 % 34.0 % Concent Red Cell Distribution Width 16.2 % 16.0 % Platelet Count 147 TH/MM3 133 TH/MM3 Mean Platelet Volume 7.6 FL 7.6 FL Neutrophils (%) (Auto) 60.0 % 55.4 % Lymphocytes (%) (Auto) 24.2 % 28.1 % Monocytes (%) (Auto) 14.8 % 15.4 % Eosinophils (%) (Auto) 0.4 % 0.8 % Basophils (%) (Auto) 0.6 % 0.3 % Neutrophils # (Auto) 1.9 TH/MM3 1.5 TH/MM3 Lymphocytes # (Auto) 0.8 TH/MM3 0.8 TH/MM3 Monocytes # (Auto) 0.5 TH/MM3 0.4 TH/MM3 Eosinophils # (Auto) 0.0 TH/MM3 0.0 TH/MM3 Basophils # (Auto) 0.0 TH/MM3 0.0 TH/MM3 CBC Comment DIFF FINAL DIFF FINAL Differential Comment Imaging Last Impressions Chest X-Ray 12/26/16 0800 Signed Impressions: Service Date/Time: Monday, December 26, 2016 09:31 - CONCLUSION: Chronic lower lung zone parenchymal pulmonary opacity indicating scarring or chronic lung disease. Slight increase on the right, unchanged on the left. Vicente Decker MD Objective Remarks General: NAD, AAOx3 Chest: Wheeze bilaterally Cardiac: Regular Abd: +BS, soft ND/NT Ext: No edema A/P Problem List: (1) Pneumonia Status: Acute Plan: - Pt presented to the ED on 12/25/16 with complaints of shortness of breath and cough which started night prior to admission - Pt reported that the evening prior to admission she developed a dry cough that has been aggravating her and she felt more short of breath, with difficulty catching her breath associated with labored breathing. - She also has some chest wall discomfort which is worse with coughing. - Pt had a noted fever at admission of 102.4. - CXR (12/25/16) noted mild air space disease right lung base which has the appearance of atelectasis. - She was given Vancomycin and Cefepime in the ER. - CXR (12/26/16) --> chronic bibasilar scarring - Pt had a recurrent fever at Noon (12/27/16) 100.7 but none since then - Blood culture (12/25/16) --> NGTD - Sputum culture (12/25/16) with heavy growth of normal respiratory bing - Vancomycin and Cefepime (12/25 - 12/29) - Change to Levaquin 500mg po daily in AM - Schedule Duonebs Q4H WA and PRN - Hold Decadron 1mg po daily and start Solu-Medrol 60mg Q6H. - DVT prophylaxis (2) Non-small cell carcinoma of lung, stage 4 Status: Chronic Plan: - Pt with metastatic Non-small cell lung cancer s/p craniotomy with stereotactic radiation in 2013 and radiation therapy to the lung in 2013. Recently found to have disease in the chest outside the previous radiation field and was treated with chemo and is on maintenance chemo. - Pt follows with Dr. Weston and he was informed on her admission but not formally consulted at this time. (3) HTN (hypertension) Status: Chronic Plan: - Cont. Lisinopril - Monitor vitals (4) Seizure Status: Chronic Plan: - Cont. Keppra - Keppra level subtherapeutic 4.5 (12/26/16) - repeat Keppra level is pending (5) Hx pulmonary embolism Status: Chronic Plan: - Cont. Xarelto Assessment and Plan Patient examined. Assessment and plan formulated with Tonie Lassiter PA-C. I agree with the above. copd with presumed right lung pneumonia process. high fever on admission. per report she has recurrence lung ca in right lung and spine so post obstruction could be considered. I will try to find the official pet/ct just prior to admission. iv to po abx. 24hr iv solumedrol and scheduled nebs for what sounds like copd exacerbation. fever down but still sob with exertion. bilateral wheezing on exam. Tonie Lassiter Dec 29, 2016 10:37 Minh Worthington MD Dec 29, 2016 12:06 Minh Worthington MD Dec 29, 2016 12:06
[2016-12-29] MEDS ORDERED: RESP: ALBUTEROL 2.5 MG/IPRATROPIUM 0.5 MG NEB (PRN) NEB (12:15)
[2016-12-29] MEDS ORDERED: methylPREDNISolone SOD SUCC 125 MG/2 ML VIAL IV PUSH SCH (13:00)
[2016-12-29] MEDS: predniSONE 10 MG TAB PO SCH ×2 (15:55→21:20)
[2016-12-29] MEDS: RESP: ALBUTEROL 2.5 MG/IPRATROPIUM 0.5 MG NEB (SCH) NEB ×2 (16:12→20:00)
[2016-12-29] MEDS: levETIRAcetam 500 MG TAB PO SCH (21:20)
[2016-12-30] VITALS (9 sets, daily range): BP systolic 123–147; BP diastolic 69–84; PULSE 87–102; RESP 20–21; TEMP 95.4–97.5; O2SAT 93–98
[2016-12-30] MEDS: RESP: ALBUTEROL 2.5 MG/IPRATROPIUM 0.5 MG NEB (SCH) NEB ×4 (08:00→20:54)
[2016-12-30] MEDS: SODIUM CHLORIDE 0.9% FLUSH 5 ML FLUSH FLUSH SCH ×2 (09:00→21:00)
[2016-12-30] MEDS: LEVOFLOXACIN 500 MG TAB PO SCH (09:00)
[2016-12-30] MEDS: VITAMIN B CMPLX/VITC/FOLIC AC CAP PO SCH (09:01)
[2016-12-30] MEDS: LISINOPRIL 10 MG TAB PO SCH (09:01)
[2016-12-30] MEDS: predniSONE 10 MG TAB PO SCH ×2 (09:02→22:00)
[2016-12-30] MEDS: PANTOPRAZOLE SOD 40 MG DELAYED RELEASE TAB PO SCH (09:02)
[2016-12-30] MEDS: RIVAROXABAN 10 MG TAB PO SCH (09:03)
--- NOTE | 2016-12-30 09:44 | HHI.PR ---
Subjective Remarks iv stopped working. Objective Vitals heart reg lung wheezing/rhonci stephanie abd s/nt ext no edema Vital Signs Date Time Temp Pulse Resp B/P Pulse Ox O2 Delivery O2 Flow Rate FiO2 12/30/16 08:00 96.1 100 20 131/80 94 12/30/16 04:00 97.5 100 20 147/84 98 12/30/16 00:00 97.0 87 20 135/84 95 12/29/16 20:00 97.1 109 20 163/85 95 12/29/16 16:15 94 Nasal Cannula 1.00 12/29/16 16:00 96.8 100 20 148/63 94 12/29/16 13:56 96 Nasal Cannula 1.00 12/29/16 12:00 96.3 101 20 168/79 95 12/29/16 12/29/16 12/30/16 15:00 23:00 07:00 # Voids 4 6 # Bowel Movements 1 Result Diagram: 12/29/16 0657 12/29/16 0657 Imaging Last Impressions Chest X-Ray 12/26/16 0800 Signed Impressions: Service Date/Time: Monday, December 26, 2016 09:31 - CONCLUSION: Chronic lower lung zone parenchymal pulmonary opacity indicating scarring or chronic lung disease. Slight increase on the right, unchanged on the left. Vicente Decker MD A/P Problem List: (1) Pneumonia Status: Acute Plan: - Pt presented to the ED on 12/25/16 with complaints of shortness of breath and cough which started night prior to admission - Pt reported that the evening prior to admission she developed a dry cough that has been aggravating her and she felt more short of breath, with difficulty catching her breath associated with labored breathing. - She also has some chest wall discomfort which is worse with coughing. - Pt had a noted fever at admission of 102.4. - CXR (12/25/16) noted mild air space disease right lung base which has the appearance of atelectasis. - She was given Vancomycin and Cefepime in the ER. - CXR (12/26/16) --> chronic bibasilar scarring - Pt had a recurrent fever at Noon (12/27/16) 100.7 but none since then - Blood culture (12/25/16) --> NGTD - Sputum culture (12/25/16) with heavy growth of normal respiratory bing - Vancomycin and Cefepime (12/25 - 12/29) - Change to Levaquin 500mg po daily - Schedule Duonebs Q4H WA and PRN - Hold Decadron 1mg po daily and start Solu-Medrol 60mg Q6H. lost iv so converted to po prednisone add incentive spirometer today. instructed pt on breathing exercises. - DVT prophylaxis (2) Non-small cell carcinoma of lung, stage 4 Status: Chronic Plan: - Pt with metastatic Non-small cell lung cancer s/p craniotomy with stereotactic radiation in 2013 and radiation therapy to the lung in 2013. Recently found to have disease in the chest outside the previous radiation field and was treated with chemo and is on maintenance chemo. - Pt follows with Dr. Weston and he was informed on her admission but not formally consulted at this time. (3) HTN (hypertension) Status: Chronic Plan: - Cont. Lisinopril - Monitor vitals (4) Seizure Status: Chronic Plan: - Cont. Keppra (5) Hx pulmonary embolism Status: Chronic Plan: - Cont. Minh Bahena MD Dec 30, 2016 09:44 Minh Worthington MD Dec 30, 2016 09:44
[2016-12-30] MEDS: levETIRAcetam 500 MG TAB PO SCH (21:59)
[2016-12-31] VITALS: BP 116/72; PULSE 88; RESP 18; TEMP 96; O2SAT 97
[2016-12-31 04:00] VITALS: BP 111/84; PULSE 74; RESP 18; TEMP 98; O2SAT 98
[2016-12-31 08:00] VITALS: BP 109/66; PULSE 100; RESP 18; TEMP 93.8; O2SAT 93
[2016-12-31] MEDS: RESP: ALBUTEROL 2.5 MG/IPRATROPIUM 0.5 MG NEB (SCH) NEB ×2 (08:16→11:00)
[2016-12-31 08:17] VITALS: O2SAT 98
[2016-12-31] MEDS: SODIUM CHLORIDE 0.9% FLUSH 5 ML FLUSH FLUSH SCH (09:00)
[2016-12-31] MEDS: PANTOPRAZOLE SOD 40 MG DELAYED RELEASE TAB PO SCH (10:03)
[2016-12-31] MEDS: LISINOPRIL 10 MG TAB PO SCH (10:03)
[2016-12-31] MEDS: predniSONE 10 MG TAB PO SCH (10:03)
[2016-12-31] MEDS: LEVOFLOXACIN 500 MG TAB PO SCH (10:04)
[2016-12-31] MEDS: VITAMIN B CMPLX/VITC/FOLIC AC CAP PO SCH (10:04)
[2016-12-31] MEDS: RIVAROXABAN 10 MG TAB PO SCH (10:04)
--- NOTE | 2016-12-31 10:05 | HHI.PR ---
Subjective Remarks pt wants to go home. sob better. Objective Vitals heart reg lung improved air entry. wheezing better abd s/nt ext no edema Vital Signs Date Time Temp Pulse Resp B/P Pulse Ox O2 Delivery O2 Flow Rate FiO2 12/31/16 08:17 98 Nasal Cannula 2.00 12/31/16 04:00 98.0 74 18 111/84 98 12/31/16 00:00 96.0 88 18 116/72 97 12/30/16 20:54 95 Nasal Cannula 2.00 12/30/16 20:00 95.5 99 20 123/75 95 12/30/16 16:00 96.0 102 21 126/69 93 12/30/16 12:00 95.4 102 21 125/76 95 12/30/16 10:50 95.4 102 21 125/76 95 12/30/16 12/30/16 12/31/16 15:00 23:00 07:00 Intake Total 240 ml Output Total 800 ml Balance 240 ml -800 ml Intake Oral 240 ml Output Urine Total 800 ml # Voids 3 # Bowel Movements 2 1 Result Diagram: 12/29/16 0657 12/29/16 0657 Imaging Last Impressions Chest X-Ray 12/26/16 0800 Signed Impressions: Service Date/Time: Monday, December 26, 2016 09:31 - CONCLUSION: Chronic lower lung zone parenchymal pulmonary opacity indicating scarring or chronic lung disease. Slight increase on the right, unchanged on the left. Vicente Decker MD A/P Problem List: (1) Pneumonia Status: Acute Plan: - Pt presented to the ED on 12/25/16 with complaints of shortness of breath and cough which started night prior to admission - Pt reported that the evening prior to admission she developed a dry cough that has been aggravating her and she felt more short of breath, with difficulty catching her breath associated with labored breathing. - She also has some chest wall discomfort which is worse with coughing. - Pt had a noted fever at admission of 102.4. - CXR (12/25/16) noted mild air space disease right lung base which has the appearance of atelectasis. - She was given Vancomycin and Cefepime in the ER. - CXR (12/26/16) --> chronic bibasilar scarring - Pt had a recurrent fever at Noon (12/27/16) 100.7 but none since then - Blood culture (12/25/16) --> NGTD - Sputum culture (12/25/16) with heavy growth of normal respiratory bing - Vancomycin and Cefepime (12/25 - 12/29) - Change to Levaquin 500mg po daily - Schedule Duonebs Q4H WA and PRN - Hold Decadron 1mg po daily and start Solu-Medrol 60mg Q6H. lost iv so converted to po prednisone today pt says she feels much better and wants to go home where she has family assisting her. will d/c on prednisone taper then resume her decadron. complete the abx. she has o2 at home. she will need to f/u oncology to decide on treatement of her recurrent malignancy. (2) Non-small cell carcinoma of lung, stage 4 Status: Chronic Plan: - Pt with metastatic Non-small cell lung cancer s/p craniotomy with stereotactic radiation in 2013 and radiation therapy to the lung in 2013. Recently found to have disease in the chest outside the previous radiation field and was treated with chemo and is on maintenance chemo. - Pt follows with Dr. Weston and he was informed on her admission but not formally consulted at this time. (3) HTN (hypertension) Status: Chronic Plan: - Cont. Lisinopril - Monitor vitals (4) Seizure Status: Chronic Plan: - Cont. Keppra (5) Hx pulmonary embolism Status: Chronic Plan: - Cont. Minh Bahena MD Dec 31, 2016 10:05
[2016-12-31] MEDS ORDERED: PRED10 PO (10:10)
[2016-12-31] MEDS ORDERED: ALBU.5I NEB (10:10)
[2016-12-31] MEDS ORDERED: IPRA0.02 NEB (10:10)
[2016-12-31] MEDS ORDERED: LEVA500T PO (10:10)
[2016-12-31] MEDS ORDERED: DEXA1TAB PO (10:10)
--- NOTE | 2016-12-31 10:11 | HHI.DCPOC ---
Discharge Care Plan Diagnosis: (1) Non-small cell carcinoma of lung, stage 4 (2) Pneumonia (3) Seizure (4) HTN (hypertension) (5) COPD (chronic obstructive pulmonary disease) Goals to Promote Your Health * To prevent worsening of your condition and complications * To maintain your health at the optimal level Directions to Meet Your Goals Take your medications as prescribed Follow your dietary instruction Follow activity as directed Keep your appointments as scheduled Take your immunizations and boosters as scheduled If your symptoms worsen call your PCP, if no PCP go to Urgent Care Center or Emergency Room Smoking is Dangerous to Your Health. Avoid second hand smoke Call the 24-hour hour crisis hotline for domestic abuse at Minh Worthington MD Dec 31, 2016 10:11
[2016-12-31] MEDS ORDERED: NEBULIZER/ADULT1 KIT (10:12)
--- NOTE | 2016-12-31 10:13 | HHI.FF ---
Face to Face Verification Diagnosis: (1) Non-small cell carcinoma of lung, stage 4 (2) COPD (chronic obstructive pulmonary disease) (3) Pneumonia (4) Seizure (5) HTN (hypertension) Physical Therapy Order: Evaluate and Treat, Improve ambulation Home Health Nursing Order: Medical education Signs/symptoms of disease process Medication education-adverse effect Nursing assessment with vital signs I have seen patient Joanne Romero on 12/31/16. My clinical findings support the need for the requested home health care services because: Ltd mobility - disease progression Deconditioned w/ increased weakness I certify that my clinical findings support that this patient is homebound because: Hx COPD- exertion dyspnea/weakness Minh Worthington MD Dec 31, 2016 10:13
[2016-12-31 11:02] VITALS: O2SAT 95
[2016-12-31 12:27] VITALS: BP 130/64; PULSE 101; RESP 18; TEMP 96.2; O2SAT 94
--- NOTE | 2017-02-13 13:00 | HHI.DS ---
Discharge Summary Admission Date Dec 25, 2016 at 16:04 Discharge Date: Dec 31, 2016 Admitting Diagnosis sepsis (1) Pneumonia Diagnosis: Principal (2) Non-small cell carcinoma of lung, stage 4 Diagnosis: Secondary (3) HTN (hypertension) Diagnosis: Secondary (4) Seizure Diagnosis: Secondary (5) Hx pulmonary embolism Diagnosis: Secondary Brief History Mrs. Romero is a 66 y/o female with metastatic non-small cell lung cancer s/p craniotomy with stereotactic radiation in 2013 and radiation therapy to the lung in 2013, previously found to have disease in the chest outside the previous radiation field and was treated with chemo and is on maintenance chemo with Alimta and Avastin. Pt follows with Dr. Pradhan. She also has hx of radiation necrosis of the brain in 2014 and pulmonary embolism on Xarelto. Pt was recently admitted to [facility] in 10/2016 with expressive aphasia. MRI findings at that time were felt to be stable from April 2016 but diffusion weighted images were still of concern for an acute CVA event in left frontal lobe near surgical bed. EEG at that time also showed epileptiform spikes and was treated as seizure activity and Keppra was added by Neurology. Pt states that she was seen by her Oncologist, Dr. Pradhan, yesterday for followup on PET/CT results but these are unavailable to me at this time. Pt presented to the ED on 12/25/16 from [facility] due to shortness of breath and cough which started last night. Pt reported yesterday evening she developed a dry cough that has been aggravating her throughout the night and today she felt short of breath, with difficulty catching her breath associated with labored breathing. She also has some chest wall discomfort which is worse with coughing. Pt had a noted fever at admission of 102.4. CXR at admission noted mild air space disease right lung base which has the appearance of atelectasis. She was given Vancomycin and Cefepime in the ER. At the time of examination pt is overall feeling better. Still with the cough but not feeling as SOB. Imaging Last Impressions Chest X-Ray 12/29/16 0800 Signed Impressions: Service Date/Time: Thursday, December 29, 2016 08:02 - CONCLUSION: 1. No significant change in the bibasilar streakiness (right worse than left). 2. Tiny right pleural effusion. Juan Worley MD Hospital Course Pt presented to the ED on 12/25/16 with complaints of shortness of breath and cough which started night prior to admission. Pt reported that the evening prior to admission she developed a dry cough that has been aggravating her and she felt more short of breath, with difficulty catching her breath associated with labored breathing. She also has some chest wall discomfort which is worse with coughing. Pt had a noted fever at admission of 102.4. CXR (12/25/16) noted mild air space disease right lung base which has the appearance of atelectasis. She was given Vancomycin and Cefepime in the ER. CXR (12/26/16) --> chronic bibasilar scarring. Pt had a recurrent fever at Noon (12/27/16) 100.7 but none since then. Blood culture (12/25/16) with NGTD. Sputum culture (12/25/16) with heavy growth of normal respiratory bing. Pt was treated with Vancomycin and Cefepime (12/25 - 12/29) and this was changed to Levaquin 500mg po daily. She was treated with scheduled Duonebs Q4H WA and PRN. Pt was on Decadron 1mg po daily from 12/26-12/29 which she takes normally at home but was converted to Prednisone 30mg BID on 12/29/16. She had symptomatic improvement on this regimen and was discharged on 12/31/16 on a Prednisone taper then she will resume her Decadron. She has supplemental O2 at home already. She will continue Levaquin 500mg po daily x 7 days. Pt has metastatic non-small cell lung cancer s/p craniotomy with stereotactic radiation in 2013 and radiation therapy to the lung in 2013. Recently found to have disease in the chest outside the previous radiation field and was treated with chemo and is on maintenance chemo. Pt follows with Dr. Prahdan and he was informed on her admission but not formally consulted. She will followup with Dr. Pradhan as an outpt in 1-2 weeks following discharge. Pt Condition on Discharge: Stable Discharge Disposition: Disch w/ Home Health Serv Discharge Instructions DIET: Follow Instructions for: As Tolerated, No Restrictions Activities you can perform: Regular-No Restrictions Follow up Referrals: Oncology - [address]adhan New Medications: Albuterol Neb (Albuterol Neb) 2.5 Mg/0.5 Ml Neb 2.5 MG NEB Q6HR NEB Note: The Albuterol Sulfate Inhalation Solution is concentrated and must be diluted. Read complete instructions carefully before using. copd Days 30 Ref 6 BOX Ipratropium Neb (Ipratropium Neb) 0.5 Mg/2.5 Ml Amp 0.5 MG NEB Q6HR NEB Breathing Treatment Days 30 Ref 6 NEBULE Nebulizer/Adult Mask (Nebulizer/Adult Mask) 1 Kit Kit 1 KIT .ROUTE DIRECTED Breathing Treatment #1 Ref 0 KIT Levofloxacin (Levaquin) 500 Mg Tab 500 MG PO DAILY pneumonia Days 7 TAB Prednisone (Prednisone) 10 Mg Tab 30 MG PO DIRECTED prednisone 30mg po bid x 1 day, 20mg po bid x 3 days, 10mg po bid x 3 days, 10mg po daily x 3 days. copd Days 10 TAB Changed Medications: Dexamethasone (Dexamethasone) 1 Mg Tab 1 MG PO DAILY resume in 11 days or 1 day after last dose of prednisone malignancy #0 Ref 0 TAB (Medication details modified) Continued Medications: B-Complex W/ Folic Acid (Super B Complex Maxi) 1 Tab 1 TAB PO DAILY TAB Levetiracetam (Keppra) 500 Mg Tab 500 MG PO HS Seizure Control #30 Ref 3 TAB Lisinopril (Lisinopril) 10 Mg Tab 10 MG PO DAILY htn #30 Ref 3 TAB Pantoprazole (Pantoprazole) 40 Mg Tab 40 MG PO DAILY Reflux #0 Ref 0 TAB Rivaroxaban (Xarelto) 10 Mg Tab 10 MG PO DAILY Blood Clot Prevention Ref 0 TAB Tonie Lassiter Feb 13, 2017 13:00
== END 2016-12-31 15:32 | disposition home health service (06) | DRG 194 ==
LOC: NEPC 12:53 → NEDA 16:04 → N05A 12-26 01:01
PROVIDERS: ADMIT Hospitalist; ATTEND Hospitalist
DX: J18.9 Pneumonia, unspecified organism (principal); J44.0 Chronic obstructive pulmonary disease with (acute) lower respiratory infection; R56.9 Unspecified convulsions; Z99.81 Dependence on supplemental oxygen; J98.11 Atelectasis; I10 Essential (primary) hypertension; Z86.711 Personal history of pulmonary embolism; Z92.21 Personal history of antineoplastic chemotherapy; Z92.3 Personal history of irradiation; K21.9 Gastro-esophageal reflux disease without esophagitis; Z85.118 Personal history of other malignant neoplasm of bronchus and lung; Z87.01 Personal history of pneumonia (recurrent)
CPT/HCPCS: 71010; 71020; 80048; 80053; 80177; 83605; 83735; 83880; 84484; 85025; 85610; 85730; 87040; 87070; 87205; 87804; 93005; 94150; 94620; 94640; 94664; 96361; 96365; 96375; 99212; 99215; G0463; J0692; J3370; J3480; J7030; J7050; J7512; J8540

== ENCOUNTER 2017-03-05 14:36 | Inpatient (IN) | payer MEDICARE ==
[~2017-03-05] VITALS: Ht 152.4 cm; Wt 64.4 kg
[~2017-03-05 14:36] MED LIST changes: +ALBU.5I NEB; +IPRA0.02 NEB; +LEVA500T PO; +NEBULIZER/ADULT1 KIT; +PRED10 PO
[2017-03-05 14:38] VITALS: BP 127/79; PULSE 118; RESP 24; TEMP 98.5; O2SAT 92
--- NOTE | 2017-03-05 14:51 | PD ---
Physical Exam Time Seen by Provider: 14:48 Narrative 66yo F [address] Dr. Weston for direct admit. Pt c/o severe SOB and hemoptysis. CT Angiogram yesterday w/ pneumonia and possible "blockage" per pateint. VSS. Patient seen in triage. Waiting for medical bed. Data Data Last Documented VS Vital Signs Date Time Temp Pulse Resp B/P Pulse Ox O2 Delivery O2 Flow Rate FiO2 03/05/17 14:38 98.5 118 24 127/[address] [facility] Supervised Visit with PAU: Radha Herrera Mar 05, 2017 14:51
--- NOTE | 2017-03-05 16:48 | PD ---
HPI Chief Complaint: Respiratory Symptoms Time Seen by Provider: 14:55 Travel History International Travel<30 days: No Contact w/Intl Traveler<30days: No Traveled to known affect area: No History of Present Illness HPI This is a 66-year-old female who has a history of metastatic small cell lung cancer followed by Dr. Weston. She's been ill for several days with increasing shortness of breath and cough. She was sent in by Dr. Weston for admission. She had a CT yesterday which demonstrated pneumonia. PFSH Past Medical History Hx Anticoagulant Therapy: Yes (XARELTO) Arthritis: No Asthma: No Autoimmune Disease: No Heart Rhythm Problems: No Cancer: Yes (LUNG) Cardiovascular Problems: Yes Chemotherapy: Yes Chest Pain: No Congestive Heart Failure: No COPD: Yes Cerebrovascular Accident: No Diabetes: No Diminished Hearing: No Endocrine: No Genitourinary: No Headaches: Yes (LEFT FRONTAL LOBE) Hepatitis: No Hiatal Hernia: No Immune Disorder: No Implanted Vascular Access Dvce: Yes (left upper chest wall port) Musculoskeletal: Yes Neurologic: Yes (APHASIA, RADIATION NECROSIS) Psychiatric: No Reproductive: No Respiratory: Yes Immunizations Current: Yes Migraines: No Radiation Therapy: Yes Seizures: Yes (2014 SEIZURE ACTIVITY) Sickle Cell Disease: No Sleep Apnea: No Thyroid Disease: No Tetanus Vaccination: < 5 Years Influenza Vaccination: No Menopausal: Yes Tubal Ligation: Yes Past Surgical History Abdominal Surgery: No AICD: No Arteriovenous Shunt: No Cardiac Surgery: No Ear Surgery: No Endocrine Surgery: Yes Eye Surgery: No Genitourinary Surgery: No Gynecologic Surgery: Yes (HYSTERECTOMY) Hysterectomy: Yes Insulin Pump: No Joint Replacement: No Neurologic Surgery: Yes (LEFT BRAIN TUMOR DEC 2013) Oral Surgery: Yes (ROOT CANAL-PAST EVENT) Pacemaker: No Thoracic Surgery: No Tonsillectomy: Yes Other Surgery: Yes (LEFT BRAIN, TUBAL LIGATION, TONSILS) Social History Alcohol Use: No Tobacco Use: No Substance Use: No Allergies-Medications (Allergen,Severity, Reaction): Coded Allergies: Contrast Media (Verified Allergy, Severe, hives, diff breathing, 03/05/17) Dilantin (Verified Allergy, Severe, rash, 03/05/17) Iodine (Verified Allergy, Unknown, 03/05/17) Reported Meds & Prescriptions Reported Meds & Active Scripts Active Ipratropium Neb (Ipratropium [place]) 0.5 Mg/2.5 Ml Amp 0.5 Mg NEB Q6HR NEB 30 Days Dexamethasone 1 Mg Tab 1 Mg PO DAILY resume in 11 days or 1 day after last dose of prednisone Lisinopril 10 Mg Tab 10 Mg PO DAILY Keppra (Levetiracetam) 500 Mg Tab 500 Mg PO HS Reported Super B Complex Maxi (B-Complex W/ Folic Acid) 1 Tab 1 Tab PO DAILY Pantoprazole (Pantoprazole Sodium) 40 Mg Tab 40 Mg PO DAILY Xarelto (Rivaroxaban) 10 Mg Tab 10 Mg PO DAILY Review of Systems Eyes: No: Blurred Vision HENT: No: Headaches Physical Exam Narrative GENERAL: Well-appearing, no acute distress, nontoxic SKIN: Warm and dry. HEAD: Atraumatic. Normocephalic. ENT: No nasal bleeding or discharge. Moist mucous membranes MUSCULOSKELETAL: No obvious deformities. NEUROLOGICAL: Awake and alert. No obvious cranial nerve deficits. Motor grossly within normal limits. Normal speech. PSYCHIATRIC: Appropriate mood and affect; insight and judgment normal. Data Data Last Documented VS Vital Signs Date Time Temp Pulse Resp B/P Pulse Ox O2 Delivery O2 Flow Rate FiO2 03/05/17 14:38 98.5 118 24 127/79 92 Room Air Orders Admit Order (Ed Use Only) (03/05/17 15:09) MDM Medical Decision Making Medical Screen Exam Complete: Yes Emergency Medical Condition: Yes Differential Diagnosis Pneumonia Narrative Course This is a 66-year-old female with a history of lung cancer who is sent in by Dr. Weston to be admitted for pneumonia. She is nontoxic appearing on my assessment. Physician Communication Physician Communication Discussed with Dr. Weston and Dr. Lucas Diagnosis Primary Impression: Pneumonia Qualified Code: J18.9 - Pneumonia due to infectious organism, unspecified laterality, unspecified part of lung Admitting Information Admitting Physician Requests: Admit Peggy Sharma MD Mar 05, 2017 16:48
[2017-03-05] MEDS ORDERED: ACETAMINOPHEN 325 MG TAB PO PRN (17:00)
[2017-03-05] MEDS ORDERED: ONDANSETRON HCL 4 MG/2 ML VIAL IV PRN (17:00)
--- NOTE | 2017-03-05 17:01 | HHI.PR ---
Subjective Remarks Case d/w pt's Oncologist, Dr. Weston, this morning. Pt dx with NSCLC 12/2013. Pt has been received chemotherapy with Dr. Weston and radiation therapy with Dr. Álvarez. Pt was hospitalized 01/09 d/t bronchitis pneumonia. Pt now with increasing right lung infiltrate on CT c/w RML pneumonia Pt c/o hemoptysis. Case d/w Dr. Weston this AM. Pt to be admitted to medical service. Will treat with antibiotics, steroids, duonebs. Dr. Weston to write H&P. Objective Vitals Vital Signs Date Time Temp Pulse Resp B/P Pulse Ox O2 Delivery O2 Flow Rate FiO2 03/05/17 15:48 22 97 Nasal Cannula 2 03/05/17 14:38 98.5 118 24 127/79 92 Room Air Objective Remarks GENERAL: This is a well-nourished, well-developed patient, in no apparent distress. CARDIOVASCULAR: Regular rate and rhythm without murmurs, gallops, or rubs. RESPIRATORY: b/l rhonchi. GASTROINTESTINAL: Abdomen soft, non-tender, nondistended. Normal active bowel sounds MUSCULOSKELETAL: Extremities without clubbing, cyanosis, or edema. NEURO: Alert & Oriented x4 to person, place, time, situation. Moves all ext x4 A/P Problem List: (1) RML pneumonia Status: Acute Plan: - cefepime - solumedrol - duonebs - consult Pulmonary Medicine - Pt will likely need bronchoscopy - Consult Radiation Oncology - Consult Medical Oncology (2) Non-small cell carcinoma of lung, stage 4 Status: Chronic Plan: - see above (3) Seizure disorder Status: Acute Plan: - lynda Problem Qualifiers (1) RML pneumonia: Qualified Code: J18.1 - Pneumonia of right middle lobe due to infectious organism Roque Lucas DO Mar 05, 2017 17:01
[2017-03-05 17:11] LABS: MEAN CELL VOLUME 95.9 FL (80.0-100.0); MEAN CORPUSCULAR HEMOGLOBIN 32.2 PG (27.0-34.0); MEAN CORPUSCULAR HGB CONC 33.6 % (32.0-36.0); PLATELET COUNT 223 TH/MM3 (150-450); RED BLOOD COUNT 3.96 MIL/MM3 (4.00-5.30); RED CELL DISTRIBUTION WIDTH 16.5 % (11.6-17.2); REVIEW FLAG FINAL; WHITE BLOOD COUNT 6.3 TH/MM3 (4.0-11.0)
[2017-03-05 17:28] LABS: INTERNATIONAL NORMALIZED RATIO 1.1 RATIO; PROTHROMBIN TIME - PATIENT 11.7 SEC (9.8-11.6)
[2017-03-05] MEDS: RESP: ALBUTEROL 2.5 MG/IPRATROPIUM 0.5 MG NEB (SCH) NEB ×2 (17:31→21:11)
[2017-03-05 17:33] VITALS: O2SAT 96
[2017-03-05 17:33] LABS: APTT (PATIENT) 24.7 SEC (24.3-30.1)
[2017-03-05] MEDS: HEPARIN-D5W INJ 250 ML IV SCH (17:56)
[2017-03-05] MEDS ORDERED: PANTOPRAZOLE SODIUM 40 MG VIAL IV PUSH SCH (18:00)
[2017-03-05] MEDS: CEFEPIME INJ 2,000 MG in SODIUM CHLORIDE 0.9% INJ 100 ML IV SCH (18:30)
--- NOTE | 2017-03-05 19:04 | MH ---
cc: JACOB ANGELO DATE OF ADMISSION: 03/05/2017 ADMITTING HISTORY AND PHYSICAL AND CONSULTATION PATIENT PROFILE: The patient is a 62-year female. She is . 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 In the past, she had smoked a half pack of cigarettes per day for 40 years. She currently does not smoke. She has four children, two sons and two daughters. HISTORY OF PRESENT ILLNESS: The patient's history dates back to 2013 when she developed a focal seizure involving the right hand. She was found to have a large metastatic lesion involving the left frontal lobe as well as a mass in the right lower lobe of the lung and hilar adenopathy. On 01/16/2014, she had a craniotomy and was found have a metastatic poorly differentiated adenocarcinoma involving the left frontal lobe. The tumor was negative for EGFR and ALK. She received stereotactic radiation therapy to the area where the tumor was resected as well as radiation to the lung in July of 2014. She has had a number of recurrences and has received chemotherapy as well as radiation therapy to the mediastinum. She had developed small bilateral pulmonary emboli in December of 2015 and has been taking Xarelto. She was recently started on nivolumab with progressive disease involving the thoracic and lumbar spine. She recently developed cough and was treated with oral antibiotics with Zithromax by another physician. She contacted our office because of increasing cough and slight amount of hemoptysis. A CT of the thorax was done yesterday without contrast and she has a progressive right middle lobe infiltrate. It appears that she may have bronchial obstruction with postobstructive pneumonia. When seen in the office, she was wheezing and coughing and short of breath with mild exertion. She had already failed a course of Zithromax and under the circumstances I felt it was prudent to admit her to the hospital for antibiotics, steroids and also bronchoscopy to determine if in fact she has recurrence and post obstructive pneumonia. If she is found to have a recurrence in the right hilar area, she may well be a candidate for additional radiation therapy. PAST SURGICAL HISTORY: 1. Tonsillectomy. 2. Tubal ligation. 3. Biopsy of the right nasopharyngeal mass in 2013, benign. 4. Left frontal craniotomy revealing metastatic poorly differentiated adenocarcinoma. PAST MEDICAL HISTORY: 1. Stage IV [id number] lung cancer with metastatic disease to brain, bone, lymph nodes, lung. 2. A history of seizure disorder. MEDICATIONS PRIOR TO ADMISSION: 1. Decadron 1 milligram a day. 2. Keppra 500 p.o. at bedtime. 3. Atrovent. 4. Lisinopril 10 milligrams a day. 5. Protonix 40 milligrams a day. 6. Xarelto 10 milligrams a day. ALLERGIES: 1. . 2. DILANTIN. FAMILY HISTORY: Noncontributory. REVIEW OF SYSTEMS: No change in vision or hearing. No chest pain. She has shortness of breath, cough, wheezing, slight hemoptysis. GI: No melena acute hematemesis. : No dysuria, frequency. MUSCULOSKELETAL: Occasional lower back pain. NEUROLOGIC: Generalized but not focal weakness. The patient has difficulty expressing herself and has a mild expressive aphasia. Physical Exam afebrile, RR 18, pulse 80, afebrile heent: normal no adenopathy Heart: reg rhythm Lungs: mild wheeze on right side ABD: no enlargement of liver or spleen Extrem: no edema MSK: mild back tenderness Neurologic: mild expressive apasia skin intact. Psychiatric: anxious poor short term memory. ASSESSMENT: 66-year female with stage IV [id number] lung cancer currently receiving nivolumab. She now has a pneumonia which had been refractory to outpatient antibiotics. I suspect this may be a postobstructive pneumonia with recurrent disease in the right hilar area causing bronchial obstruction as suggested by yesterday's ct of thorax. Other problems include a previous history of a seizure disorder related to the surgery on the brain for her metastatic disease. RECOMMENDATIONS: 1. IV antibiotics with cefepime and steroids. 2. Consult pulmonary. I would like her to have a bronchoscopy to determine if she has a mass in the right lung, responsible for a post obstructive pneumonia which would be amenable to radiation therapy. 3. Consult radiation oncology. 4. Continue Keppra. She has been switched to IV heparin, which can be stopped for a procedure. MD OSCAR Tamayo/GIFTY /6:30 PM /6:50 PM [facility]ITAL[facility]
[2017-03-05 20:00] VITALS: BP 134/67; PULSE 94; RESP 18; TEMP 97.9; O2SAT 93
[2017-03-05] MEDS: levETIRAcetam 500 MG TAB PO SCH (21:00)
[2017-03-05] MEDS: methylPREDNISolone SOD SUCC 125 MG/2 ML VIAL IV PUSH SCH (21:04)
[2017-03-05 21:15] VITALS: O2SAT 94
[2017-03-06] VITALS (10 sets, daily range): BP systolic 112–137; BP diastolic 61–84; PULSE 91–128; RESP 17–19; TEMP 97.3–98.4; O2SAT 91–97
[2017-03-06] MEDS: CEFEPIME INJ 2,000 MG in SODIUM CHLORIDE 0.9% INJ 100 ML IV SCH ×3 (00:27→16:55)
[2017-03-06 01:23] LABS: APTT (PATIENT) 46.3 SEC (24.3-30.1)
[2017-03-06] MEDS: RESP: ALBUTEROL 2.5 MG/IPRATROPIUM 0.5 MG NEB (SCH) NEB ×4 (03:28→19:43)
--- NOTE | 2017-03-06 08:10 | MB ---
cc: CHYNA CLEMENTE M.D. DATE OF CONSULTATION 03/05/2017 REASON FOR CONSULTATION Question post obstructive pneumonia. HISTORY OF PRESENT ILLNESS Mrs. Romero is a 62-year-old female with a history of right lung cancer with brain mets, pathologically poorly differentiated adenocarcinoma. She has been complaining for about a week of cough, whitish yellowish blood-tinged sputum. She was given antibiotic therapy without improvement. She was seen by Dr. Weston after which she was hospitalized for nonresponse to her outpatient antibiotic regimen. A CT scan of the chest done the day before admission revealed progression of right mid lung lobe infiltrate with question post obstructive pneumonia. PAST MEDICAL HISTORY 1. Pld-waghw-ggyq lung cancer as discussed above. 2. History of seizure disorder. 3. Previous benign nasopharyngeal mass biopsied in 2013. 4. T&A as a child 5. Tubal ligation 6. Left frontal craniotomy with removal of metastatic adenocarcinoma MEDICATIONS Include: 1. Keppra 2. Decadron 3. Atrovent 4. Lisinopril 5. Protonix 6. Xarelto ALLERGIES DILANTIN FAMILY HISTORY Noncontributory SOCIAL HISTORY Does not smoke. Does not drink. Does not use drugs. REVIEW OF SYSTEMS A 12-point review of systems as per HPI and past history otherwise negative. PHYSICAL EXAM On exam, temperature 98, pulse 90, respiration 20, blood pressure 130/70, oxygen saturation 92% on two liters oxygen nasal cannula. HEENT: Exam unremarkable. Eyes without icterus. NECK: Without adenopathy or thyroid enlargement. CHEST: Scattered coarse rhonchi bilaterally. CARDIAC: PMI distant. S1, S2 audible. No murmur or rub. ABDOMEN: Lax, bowel sounds audible. EXTREMITIES: No clubbing, cyanosis or edema. LABORATORY DATA White count 6.3, hemoglobin 12.8, platelets 223,000, INR 1.1. IMPRESSION 1. Worsening right middle lobe pneumonia. 2. Cancer of the lung with brain mets PLAN The patient has been started on antibiotic therapy and appropriately so. We will proceed with bronchoscopic examination to assess the possibility of recurrent cancer and postobstructive pneumonia. The patient may require further therapy for same. I do thank you for asking me to partake in Mrs. Romero's care. Chyna Clemente MD WWW/LINETTE /9:01 PM /8:03 AM
[2017-03-06 08:16] LABS: ALT (GPT) 34 U/L (10-53); ANION GAP 9 MEQ/L (5-15); AST (GOT) 18 U/L (15-37); BLOOD UREA NITROGEN 10 MG/DL (7-18); CHLORIDE 106 MEQ/L (98-107); GLOMERULAR FILTRATION RATE 118 ML/MIN (>89); POTASSIUM 3.9 MEQ/L (3.5-5.1); SODIUM (NA) 140 MEQ/L (136-145)
[2017-03-06 08:18] LABS: ALKALINE PHOSPHATASE 59 U/L (45-117); TOTAL BILIRUBIN ADULT 0.3 MG/DL (0.2-1.0)
[2017-03-06] MEDS: methylPREDNISolone SOD SUCC 125 MG/2 ML VIAL IV PUSH SCH ×3 (08:30→20:05)
[2017-03-06] MEDS: LISINOPRIL 10 MG TAB PO SCH (09:00)
[2017-03-06 10:08] LABS: APTT (PATIENT) 70.9 SEC (24.3-30.1)
--- NOTE | 2017-03-06 11:06 | PD.ONC.PN ---
Subjective Subjective Remarks Afebrile overnight. Patient states her cough is better today. Her at bedside says he has not heard her cough today. Objective Data Date Time Temp Pulse Resp B/P Pulse Ox O2 Delivery O2 Flow Rate FiO2 03/06/17 09:40 97 Nasal Cannula 2.00 03/06/17 08:00 98.4 92 17 120/72 94 03/06/17 04:00 97.3 98 18 112/61 93 03/06/17 03:30 94 Nasal Cannula 2.00 03/06/17 00:00 97.5 96 18 115/74 91 03/05/17 21:15 94 Nasal Cannula 2.00 03/05/17 20:00 97.9 94 18 134/67 93 03/05/17 17:33 96 Nasal Cannula 2.00 03/05/17 15:48 22 97 Nasal Cannula 2 03/05/17 14:38 98.5 118 24 127/79 92 Room Air Result Diagram: 03/05/17 1650 03/06/17 0615 Laboratory Results Laboratory Tests Test 03/05/17 03/06/17 03/06/17 03/06/17 16:50 00:25 06:15 09:28 White Blood Count 6.3 TH/MM3 Red Blood Count 3.96 MIL/MM3 Hemoglobin 12.8 GM/DL Hematocrit 38.0 % Mean Corpuscular Volume 95.9 FL Mean Corpuscular Hemoglobin 32.2 PG Mean Corpuscular Hemoglobin 33.6 % Concent Red Cell Distribution Width 16.5 % Platelet Count 223 TH/MM3 Mean Platelet Volume 7.7 FL Prothrombin Time 11.7 SEC Prothromb Time International 1.1 RATIO Ratio Activated Partial 24.7 SEC 46.3 SEC 70.9 SEC Thromboplast Time Sodium Level 140 MEQ/L Potassium Level 3.9 MEQ/L Chloride Level 106 MEQ/L Carbon Dioxide Level 25.0 MEQ/L Anion Gap 9 MEQ/L Blood Urea Nitrogen 10 MG/DL Creatinine 0.52 MG/DL Estimat Glomerular Filtration 118 ML/MIN Rate Random Glucose 140 MG/DL Calcium Level 8.2 MG/DL Total Bilirubin 0.3 MG/DL Aspartate Amino Transf 18 U/L (AST/SGOT) Alanine Aminotransferase 34 U/L (ALT/SGPT) Alkaline Phosphatase 59 U/L Total Protein 6.4 GM/DL Albumin 3.0 GM/DL Administered Medications Medications (Trade) Dose Ordered Sig/Tabitha Route PRN Reason Start Time Stop Time Status Last Admin Dose Admin Heparin Sodium/ Dextrose (Heparin-D5W Inj) 250 ml @ 0 mls/hr TITRATE IV 03/05/17 16:45 03/05/17 17:56 Methylprednisolone Sodium Succinate 60 mg 60 mg Q12HR IV PUSH 03/05/17 18:00 03/06/17 08:30 Cefepime HCl/ Sodium Chloride (Maxipime Inj/NS Inj) 100 ml @ 200 mls/hr Q8H IV 03/05/17 18:00 03/06/17 09:20 Levetriacetam (Keppra) 500 mg HS PO 03/05/17 21:00 03/05/17 21:00 Objective Remarks GENERAL: Middle aged female, sitting up in bed on 2L O2 via NC. SKIN: Warm and dry. HEAD: Normocephalic. EYES: No injection or drainage. NECK: Supple, trachea midline. CARDIOVASCULAR: Regular rate and rhythm RESPIRATORY: diminished at bases, scattered rhonchi GASTROINTESTINAL: Abdomen soft, non-tender, nondistended. EXTREMITIES: No cyanosis, or edema. MUSCULOSKELETAL: Adequate muscle tone. NEUROLOGICAL: awake and alert, normal speech. Assessment/Plan Problem List: (1) Pneumonia Status: Acute Plan: --CT thorax shows progressive right middle lobe infiltrate. appears that she may have bronchial obstruction with postobstructive pneumonia. --If she is found to have a recurrence in the right hilar area, she may well be a candidate for additional radiation therapy. -- cefepime and steroids. --pulmonary following and plans bronchoscopy --radiation oncology following (2) Hx pulmonary embolism Status: Chronic Plan: --on heparin gtt --on xarelto outpatient --dx in December 2015 Assessment 66y/o female with NSCLC admitted with hemoptysis and PNA HISTORY OF PRESENT ILLNESS: 2013 -- developed a focal seizure involving the right hand. found to have a large metastatic lesion involving the left frontal lobe as well as a mass in the right lower lobe of the lung and hilar adenopathy. --01/16/2014-- craniotomy; path= metastatic poorly differentiated adenocarcinoma involving the left frontal lobe. negative for EGFR and ALK. --received stereotactic radiation therapy to the area where the tumor was resected as well as radiation to the lung in July of 2014. --has had a number of recurrences and has received chemotherapy as well as radiation therapy to the mediastinum. 2015 --in December developed small bilateral pulmonary emboli has been taking Xarelto. 2017--started on nivolumab with progressive disease involving the thoracic and lumbar spine. Plan 1. await results of bronchoscopy 2. continue antibiotics and steroids Attending Statement The exam, history, and the medical decision-making described in the above note were completed with the assistance of the mid-level provider. I reviewed and agree with the findings presented. I attest that I had a [id number] encounter with the patient on the same day, and personally performed and documented my assessment and findings in the medical record. Problem Qualifiers (1) Pneumonia: Qualified Code: J18.9 - Pneumonia due to infectious organism, unspecified laterality, unspecified part of lung Ciara Dunbar Mar 06, 2017 11:06 Erik Camarena MD Mar 07, 2017 00:05
--- NOTE | 2017-03-06 14:01 | HHI.PR ---
Subjective Remarks ALERT NO SOB AT REST Objective Vital Signs Date Time Temp Pulse Resp B/P Pulse Ox O2 Delivery O2 Flow Rate FiO2 03/06/17 12:00 98.2 91 18 132/64 94 03/06/17 09:40 97 Nasal Cannula 2.00 03/06/17 08:00 98.4 92 17 120/72 94 03/06/17 04:00 97.3 98 18 112/61 93 03/06/17 03:30 94 Nasal Cannula 2.00 03/06/17 00:00 97.5 96 18 115/74 91 03/05/17 21:15 94 Nasal Cannula 2.00 03/05/17 20:00 97.9 94 18 134/67 93 03/05/17 17:33 96 Nasal Cannula 2.00 03/05/17 15:48 22 97 Nasal Cannula 2 03/05/17 14:38 98.5 118 24 127/79 92 Room Air I/O 03/05/17 03/05/17 03/05/17 03/06/17 03/06/17 03/06/17 07:00 15:00 23:00 07:00 15:00 23:00 Intake Total 480 ml 240 ml Balance 480 ml 240 ml Intake Oral 480 ml 240 ml # Voids 0 2 # Bowel Movements 0 1 Result Diagram: 03/05/17 1650 03/06/17 0615 Objective Remarks GENERAL: SKIN: Warm and dry. HEAD: Atraumatic. Normocephalic. EYES: Pupils equal and round. No scleral icterus. No injection or drainage. ENT: No nasal bleeding or discharge. Mucous membranes pink and moist. NECK: Trachea midline. No JVD. CARDIOVASCULAR: Regular rate and rhythm. RESPIRATORY: No accessory muscle use. Clear to auscultation. Breath sounds equal bilaterally. GASTROINTESTINAL: Abdomen soft, non-tender, nondistended. Hepatic and splenic margins not palpable. MUSCULOSKELETAL: Extremities without clubbing, cyanosis, or edema. No obvious deformities. NEUROLOGICAL: Awake and alert. No obvious cranial nerve deficits. Motor grossly within normal limits. Five out of 5 muscle strength in the arms and legs. Normal speech. PSYCHIATRIC: Appropriate mood and affect; insight and judgment normal. Assessment and Plan Assessment and Plan ASSESSMENT PNA ? POST OBSTRUCTIVE PLAN ANTIBIOTICS BRONCHOSCOPY Chyna Clemente MD Mar 06, 2017 14:01
--- NOTE | 2017-03-06 15:04 | MB ---
cc: CHYNA CLEMENTE M.D.,JACOB NEWMAN,ADAM Najera M.D. DATE OF CONSULTATION: 03/06/2017. BRIEF HISTORY: This lady is known to our service. She was initially treated by Dr. Theodore prior to his leaving this facility. She was found to have a large metastatic lesion involving her left frontal lobe and underwent stereotactic radiation treatment to that area completed on 03/06/2014. She was found to have an adenocarcinoma of her lung and underwent stereotactic radiation treatment for what appears to be a right lower lobe lung lesion completed in July of 2014. Unfortunately she subsequently developed mediastinal disease and received further radiation treatment to her mediastinum completed 03/19/2015. She was thought to have developed an intracranial recurrence and received further stereotactic radiation to her brain in May of 2015. 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 Unfortunately she has known metastatic disease and has been under Dr. Weston's ongoing care. She was recently started on nivolumab for progressive disease involving her thorax and lumbar spine. She had been seen by my associate, Dr. Álvarez, for palliative radiation treatment to her spine, which she declined. She has presented at this time with symptoms of increasing cough associated with some shortness of breath and hemoptysis. She underwent a CT scan of her chest on outpatient imaging which revealed a progressive right middle lobe infiltrate with some post obstruction collapse of her lung and possible pneumonia. She was subsequently admitted to the hospital for workup and treatment of this. She has been seen by Dr. Chyna Clemente who has recommended bronchoscopy to assess the possibility of recurrent cancer and post obstructive pneumonia. It is not clear if that has yet been scheduled. She is currently on antibiotic therapy. Today she reports that although she continues to have a cough, her hemoptysis appears to have largely resolved. She is sitting up resting comfortably in bed. She denies any pain today in any region. PAST MEDICAL AND SURGICAL HISTORY: 1. 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 2. 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 3. Previous tonsillectomy. 4. Tubal ligation. 5. Benign right nasopharyngeal mass previously biopsied. 6. Left frontal craniotomy for metastatic poorly differentiated adenocarcinoma. ALLERGIES: 1. CONTRAST FOR SCANS. 2. DILANTIN. MEDICATIONS PRIOR TO ADMISSION: 1. Decadron 1 milligram daily. 2. Keppra 500 milligrams at bedtime. 3. Lisinopril 10 milligrams a day. 4. Protonix 40 milligrams a day. 5. Xarelto 10 milligrams. REVIEW OF SYSTEMS: She does have shortness of breath. She has a cough with some wheezing. There has been some hemoptysis. She denies chest pain or palpitations. She denies new head, eyes, ears, nose and throat complaints. There are no GI, , musculoskeletal or neurologic complaints apart from generalized focal weakness and a mild expressive aphasia. PHYSICAL EXAMINATION: GENERAL: Today on exam this lady appears to be alert and oriented. VITAL SIGNS: Include that she is afebrile with pulse of 91 and regular, respiratory rate of 18 and blood pressure 132/64, pulse oximetry was 94% on room air. SKIN, HEAD, EYES, EARS, NOSE, THROAT: There was no jaundice. Her conjunctive and eyelids were normal. Oral cavity is unremarkable. There is no adenopathy of her head and neck. LUNGS: She had some decreased air entry in the right lung field with expiratory wheezing. Her left lung field was clear. HEART: Her heart sounds were normal without murmurs, rubs or bruits. ABDOMEN: There are no abdominal masses or tenderness. EXTREMITIES: No ankle edema. She was moving all limbs normally. DATA REVIEW: Today I have been able to review her outpatient imaging that includes a recent CT scan of the chest which was performed on 03/04/2017. I note that she has a small area of consolidation and what appears to be postobstructive pneumonia which is different from that seen on the CT portion of her PET/CT on December 16, 2016 or September 26, 2016. As well, I note that in the region where there may be obstruction on the PET scan, this was PET-avid in late November suggesting that there is a very real risk that she has a postobstructive pneumonia related to recurrent malignancy. I also note that she has isolated pulmonary lesions in her lungs and there appears to be evidence of disease in her lumbar spine none of which would be considered new and has been discussed with her in the past. Nevertheless, I have reviewed all of the data with this patient. I have explained to her that we are very suspicious that her hemoptysis is being caused by recurrent disease and we encourage Dr. Clemente to perform the bronchoscopy which appears to be planned. I have personally reviewed her radiation treatments delivered to her thorax under Dr. Theodore's care dating back to 2013 and 2014. I believe that if we have documented disease that it would not be unreasonable to give her a short intense dose of radiation treatment to this region of obstruction, although there would likely be some overlap with her previous radiation field, particularly the mediastinal treatment. Nevertheless, I believe we can deliver this safely. We would keep this limited to a very small volume. At any time that we re-treat an area, there is a risk of necrosis of the surrounding tissues and ultimately that could lead to further respiratory distress so this would have to be reviewed with Dr. Weston and the patient to be sure that everyone was in agreement. I have explained this to her in detail today. She of course is waiting for the bronchoscopy and when we have further data available we can revisit the decision-making process. Thank you for asking us to see this patient. We will follow her while in the hospital but you can contact us at anytime as well. MD VIVIAN Johnson/GIFTY /1:58 PM /2:47 PM
--- NOTE | 2017-03-06 15:33 | HHI.PR ---
Subjective Remarks No new complaints. Objective Vitals Vital Signs Date Time Temp Pulse Resp B/P Pulse Ox O2 Delivery O2 Flow Rate FiO2 03/06/17 12:00 98.2 91 18 132/64 94 03/06/17 09:40 97 Nasal Cannula 2.00 03/06/17 08:00 98.4 92 17 120/72 94 03/06/17 04:00 97.3 98 18 112/61 93 03/06/17 03:30 94 Nasal Cannula 2.00 03/06/17 00:00 97.5 96 18 115/74 91 03/05/17 21:15 94 Nasal Cannula 2.00 03/05/17 20:00 97.9 94 18 134/67 93 03/05/17 17:33 96 Nasal Cannula 2.00 03/05/17 15:48 22 97 Nasal Cannula 2 03/05/17 03/05/17 03/06/17 15:00 23:00 07:00 Intake Total 480 ml 240 ml Balance 480 ml 240 ml Intake Oral 480 ml 240 ml # Voids 0 2 # Bowel Movements 0 1 Result Diagram: 03/05/17 1650 03/06/17 0615 Objective Remarks GENERAL: This is a well-nourished, well-developed patient, in no apparent distress. CARDIOVASCULAR: Regular rate and rhythm without murmurs, gallops, or rubs. RESPIRATORY: b/l rhonchi. GASTROINTESTINAL: Abdomen soft, non-tender, nondistended. Normal active bowel sounds MUSCULOSKELETAL: Extremities without clubbing, cyanosis, or edema. NEURO: Alert & Oriented x4 to person, place, time, situation. Moves all ext x4 A/P Problem List: (1) RML pneumonia Status: Acute Plan: - comgmt with Medical Oncology, Radiation Oncology, Pulm Med - cefepime - solumedrol - duonebs - case d/w Dr. Clemente, pt will need bronchoscopy. Hopefully over the weekend, if not then 03/09/17 (2) Non-small cell carcinoma of lung, stage 4 Status: Chronic Plan: - see above (3) Seizure disorder Status: Acute Plan: - keppra Problem Qualifiers (1) RML pneumonia: Qualified Code: J18.1 - Pneumonia of right middle lobe due to infectious organism Roque Lucas DO Mar 06, 2017 15:32
[2017-03-06] MEDS: PANTOPRAZOLE SOD 40 MG DELAYED RELEASE TAB PO SCH (16:56)
[2017-03-06] MEDS: levETIRAcetam 500 MG TAB PO SCH (20:05)
[2017-03-06] MEDS: HEPARIN-D5W INJ 250 ML IV SCH (22:22)
[2017-03-07] VITALS (7 sets, daily range): BP systolic 111–152; BP diastolic 67–74; PULSE 87–118; RESP 18–20; TEMP 97.4–98.5; O2SAT 18–96
[2017-03-07] MEDS: CEFEPIME INJ 2,000 MG in SODIUM CHLORIDE 0.9% INJ 100 ML IV SCH ×3 (01:56→17:38)
[2017-03-07] MEDS: RESP: ALBUTEROL 2.5 MG/IPRATROPIUM 0.5 MG NEB (SCH) NEB ×4 (04:00→19:19)
[2017-03-07 07:01] LABS: AUTOMATED NEUTROPHIL # 10.1 TH/MM3 (1.8-7.7); BASOPHIL % 0.1 % (0.0-2.0); HEMATOCRIT 34.3 % (35.0-46.0); HEMO FLAGS DIFF FINAL; LYMPH % 5.9 % (9.0-44.0); LYMPHOCYTE # 0.7 TH/MM3 (1.0-4.8); MEAN CELL VOLUME 95.1 FL (80.0-100.0); MEAN CORPUSCULAR HEMOGLOBIN 32.3 PG (27.0-34.0); PLATELET COUNT 219 TH/MM3 (150-450); RED CELL DISTRIBUTION WIDTH 16.3 % (11.6-17.2); WHITE BLOOD COUNT 11.2 TH/MM3 (4.0-11.0)
[2017-03-07 07:20] LABS: APTT (PATIENT) 68.3 SEC (24.3-30.1)
[2017-03-07] MEDS: LISINOPRIL 10 MG TAB PO SCH (09:10)
[2017-03-07] MEDS: methylPREDNISolone SOD SUCC 125 MG/2 ML VIAL IV PUSH SCH ×2 (09:10→21:23)
--- NOTE | 2017-03-07 12:59 | HHI.PR ---
Subjective Remarks ALERT NO SOB AT REST Objective Vital Signs Date Time Temp Pulse Resp B/P Pulse Ox O2 Delivery O2 Flow Rate FiO2 03/07/17 12:00 97.7 109 18 146/70 18 03/07/17 09:29 93 Nasal Cannula 21 03/07/17 08:10 Nasal Cannula 2.00 03/07/17 08:00 97.5 90 18 138/67 94 03/07/17 05:37 97.4 118 18 124/67 96 03/06/17 23:39 97.4 128 18 113/84 93 03/06/17 20:00 97.7 124 19 115/64 95 03/06/17 19:46 97 Nasal Cannula 2.00 03/06/17 19:45 Nasal Cannula 2.00 03/06/17 16:00 97.9 120 18 137/72 92 I/O 03/06/17 03/06/17 03/06/17 03/07/17 03/07/17 03/07/17 07:00 15:00 23:00 07:00 15:00 23:00 Intake Total 240 ml 666 ml 29 ml 176 ml Balance 240 ml 666 ml 29 ml 176 ml Intake Oral 240 ml 480 ml IV Total 186 ml 29 ml 176 ml # Voids 2 2 1 # Bowel Movements 1 1 Result Diagram: 03/07/17 0607 03/06/17 0615 Objective Remarks GENERAL: SKIN: Warm and dry. HEAD: Atraumatic. Normocephalic. EYES: Pupils equal and round. No scleral icterus. No injection or drainage. ENT: No nasal bleeding or discharge. Mucous membranes pink and moist. NECK: Trachea midline. No JVD. CARDIOVASCULAR: Regular rate and rhythm. RESPIRATORY: No accessory muscle use. Clear to auscultation. Breath sounds equal bilaterally. GASTROINTESTINAL: Abdomen soft, non-tender, nondistended. Hepatic and splenic margins not palpable. MUSCULOSKELETAL: Extremities without clubbing, cyanosis, or edema. No obvious deformities. NEUROLOGICAL: Awake and alert. No obvious cranial nerve deficits. Motor grossly within normal limits. Five out of 5 muscle strength in the arms and legs. Normal speech. PSYCHIATRIC: Appropriate mood and affect; insight and judgment normal. Assessment and Plan Assessment and Plan ASSESSMENT PNA ? POST OBSTRUCTIVE PLAN ANTIBIOTICS BRONCHOSCOPY Chyna Clemente MD Mar 07, 2017 12:59
--- NOTE | 2017-03-07 17:32 | HHI.PR ---
Subjective Remarks No new complaints. Objective Vitals Vital Signs Date Time Temp Pulse Resp B/P Pulse Ox O2 Delivery O2 Flow Rate FiO2 03/07/17 16:00 98.4 87 18 152/74 92 03/07/17 12:00 97.7 109 18 146/70 18 03/07/17 09:29 93 Nasal Cannula 21 03/07/17 08:10 Nasal Cannula 2.00 03/07/17 08:00 97.5 90 18 138/67 94 03/07/17 05:37 97.4 118 18 124/67 96 03/06/17 23:39 97.4 128 18 113/84 93 03/06/17 20:00 97.7 124 19 115/64 95 03/06/17 19:46 97 Nasal Cannula 2.00 03/06/17 19:45 Nasal Cannula 2.00 03/06/17 03/06/17 03/07/17 15:00 23:00 07:00 Intake Total 666 ml 29 ml 176 ml Balance 666 ml 29 ml 176 ml Intake Oral 480 ml IV Total 186 ml 29 ml 176 ml # Voids 2 1 # Bowel Movements 1 Result Diagram: 03/07/17 0607 03/06/17 0615 Objective Remarks GENERAL: This is a well-nourished, well-developed patient, in no apparent distress. CARDIOVASCULAR: Regular rate and rhythm without murmurs, gallops, or rubs. RESPIRATORY: b/l rhonchi. GASTROINTESTINAL: Abdomen soft, non-tender, nondistended. Normal active bowel sounds MUSCULOSKELETAL: Extremities without clubbing, cyanosis, or edema. NEURO: Alert & Oriented x4 to person, place, time, situation. Moves all ext x4 A/P Problem List: (1) RML pneumonia Status: Acute Plan: - comgmt with Medical Oncology, Radiation Oncology, Pulm Med - cefepime - solumedrol - duonebs - case d/w Dr. Clemente (03/06/17) - bronchoscopy 03/08/17 (2) Non-small cell carcinoma of lung, stage 4 Status: Chronic Plan: - see above (3) Seizure disorder Status: Acute Plan: - keppra Problem Qualifiers (1) RML pneumonia: Qualified Code: J18.1 - Pneumonia of right middle lobe due to infectious organism Roque Lucas DO Mar 07, 2017 17:32
[2017-03-07] MEDS: PANTOPRAZOLE SOD 40 MG DELAYED RELEASE TAB PO SCH (17:38)
--- NOTE | 2017-03-07 20:24 | RADRPT ---
EXAM DATE/TIME: 03/07/2017 19:51 [facility] COMPARISON: No previous studies available for comparison. INDICATIONS : Short of Breath MEDICAL HISTORY : Chronic obstructive pulmonary disease. Carcinoma, lung SURGICAL HISTORY : Infusaport insertion ENCOUNTER: Initial ACUITY: 1 day PAIN SCORE: 0/10 LOCATION: Bilateral chest FINDINGS: There is linear opacity right lung base most characteristic of atelectasis. There is additional mild basilar airspace disease and trace pleural fluid. Right basilar opacity improved from December 29. Inf use-a-Port tip in superior vena cava. CONCLUSION: [id number]-[id number] tip is in superior vena cava. Improved right basilar airspace disease since December 29. Trace pleural fluid. Veto Galdamez MD on March 07, 2017 at 20:20 Board Certified Radiologist. This report was verified electronically.
[2017-03-07] MEDS: levETIRAcetam 500 MG TAB PO SCH (21:23)
[2017-03-08] VITALS (7 sets, daily range): BP systolic 114–153; BP diastolic 56–95; PULSE 80–105; RESP 16–20; TEMP 97.3–98.1; O2SAT 90–96
[2017-03-08] MEDS: CEFEPIME INJ 2,000 MG in SODIUM CHLORIDE 0.9% INJ 100 ML IV SCH ×3 (02:09→16:50)
[2017-03-08] MEDS: RESP: ALBUTEROL 2.5 MG/IPRATROPIUM 0.5 MG NEB (SCH) NEB ×4 (03:45→20:47)
[2017-03-08 05:29] LABS: HEMATOCRIT 35.4 % (35.0-46.0); MEAN CELL VOLUME 95.8 FL (80.0-100.0); MEAN CORPUSCULAR HEMOGLOBIN 31.3 PG (27.0-34.0); MEAN CORPUSCULAR HGB CONC 32.7 % (32.0-36.0); PLATELET COUNT 203 TH/MM3 (150-450); RED BLOOD COUNT 3.69 MIL/MM3 (4.00-5.30); RED CELL DISTRIBUTION WIDTH 16.2 % (11.6-17.2); REVIEW FLAG FINAL
[2017-03-08 05:43] LABS: APTT (PATIENT) 79.8 SEC (24.3-30.1)
[2017-03-08] MEDS: methylPREDNISolone SOD SUCC 125 MG/2 ML VIAL IV PUSH SCH ×2 (08:50→20:51)
[2017-03-08] MEDS: LISINOPRIL 10 MG TAB PO SCH (08:50)
[2017-03-08] MEDS ORDERED: ONDANSETRON HCL 4 MG/2 ML VIAL IV PUSH ONE (12:00)
[2017-03-08] MEDS ORDERED: PROPOFOL 200 MG/20 ML AMP IV ONE (12:00)
--- NOTE | 2017-03-08 15:53 | HHI.PR ---
Subjective Remarks PT IN OR FOR BRONCHOSCOPY. Objective Vitals Vital Signs Date Time Temp Pulse Resp B/P Pulse Ox O2 Delivery O2 Flow Rate FiO2 03/08/17 12:00 97.7 90 18 153/95 90 03/08/17 09:23 91 Nasal Cannula 2.00 03/08/17 08:50 Nasal Cannula 2.00 03/08/17 08:00 97.5 88 18 126/67 91 03/08/17 04:00 97.6 90 18 114/56 96 03/08/17 00:20 97.3 80 16 133/62 95 03/07/17 21:15 Nasal Cannula 2.00 03/07/17 20:28 98.5 107 20 111/68 96 03/07/17 19:21 93 Nasal Cannula 2.00 03/07/17 16:00 98.4 87 18 152/74 92 03/07/17 03/07/17 03/08/17 15:00 23:00 07:00 Intake Total 720 ml 34 ml Balance 720 ml 34 ml Intake Oral 720 ml IV Total 34 ml # Voids 3 3 # Bowel Movements 1 Result Diagram: 03/08/17 0515 03/06/17 0615 Objective Remarks GENERAL: This is a well-nourished, well-developed patient, in no apparent distress. CARDIOVASCULAR: Regular rate and rhythm without murmurs, gallops, or rubs. RESPIRATORY: b/l rhonchi. GASTROINTESTINAL: Abdomen soft, non-tender, nondistended. Normal active bowel sounds MUSCULOSKELETAL: Extremities without clubbing, cyanosis, or edema. NEURO: Alert & Oriented x4 to person, place, time, situation. Moves all ext x4 A/P Problem List: (1) RML pneumonia Status: Acute Plan: - comgmt with Medical Oncology, Radiation Oncology, Pulm Med - cefepime - solumedrol - duonebs - case d/w Dr. Clemente (03/06/17) - bronchoscopy 03/08/17 - UNABLE TO ROUND ON PT. SHE IS IN THE OR FOR BRONCHOSCOPY WITH DR. CLEMENTE. (2) Non-small cell carcinoma of lung, stage 4 Status: Chronic Plan: - see above (3) Seizure disorder Status: Acute Plan: - keppra Problem Qualifiers (1) RML pneumonia: Qualified Code: J18.1 - Pneumonia of right middle lobe due to infectious organism Roque Lucas DO Mar 08, 2017 15:53
[2017-03-08] MEDS ORDERED: *RESP: ALBUTEROL 2.5 MG/3 ML NEB (PRN) PERIprocedural Use ONLY NEB ONE (17:01)
[2017-03-08] MEDS: PANTOPRAZOLE SOD 40 MG DELAYED RELEASE TAB PO SCH (18:08)
--- NOTE | 2017-03-08 19:37 | MR ---
cc: CHYNA CLEMENTE M.D. DATE: 03/08/2017. PROCEDURE PERFORMED: Fiberoptic bronchoscopy, flexible. INDICATIONS FOR THE BRONCHOSCOPY: History of lung cancer, question recurrence. DESCRIPTION OF THE PROCEDURE IN DETAIL: Fiberoptic bronchoscopy performed via LMA. The vocal cords are intact. The trachea is mildly hyperemic. The mimi is sharp. The left main bronchus, left upper and lower lobes are without obstruction or mass lesion. Thick mucous plugs removed. Right mainstem bronchus patent. Right upper lobe bronchus as well is patent without obstruction or mass lesion. The lower bronchus intermedius at the bifurcation of the middle and lower lobes is with irregularity and edematous mucosa with marked narrowing of the right middle lobe as well as the lower lobe maybe somewhat more on the middle lobe side; however, both are suggestive of obstructing malignancy. Washings obtained and sent for routine TB, fungal culture as well as cytological exam. The procedure was well tolerated. The patient was transferred to recovery in stable condition. Chyna Clemente MD WWW/GIFTY /5:01 PM /7:32 PM
[2017-03-08] MEDS: levETIRAcetam 500 MG TAB PO SCH (20:49)
[2017-03-09] VITALS (7 sets, daily range): BP systolic 118–134; BP diastolic 57–76; PULSE 71–99; RESP 16–20; TEMP 97.2–98.3; O2SAT 94–99
[2017-03-09] MEDS: CEFEPIME INJ 2,000 MG in SODIUM CHLORIDE 0.9% INJ 100 ML IV SCH ×3 (01:11→18:23)
[2017-03-09] MEDS: HEPARIN-D5W INJ 250 ML IV SCH (01:13)
[2017-03-09] MEDS: RESP: ALBUTEROL 2.5 MG/IPRATROPIUM 0.5 MG NEB (SCH) NEB ×3 (03:36→20:00)
[2017-03-09] MEDS: methylPREDNISolone SOD SUCC 125 MG/2 ML VIAL IV PUSH SCH ×2 (07:56→22:41)
[2017-03-09] MEDS: LISINOPRIL 10 MG TAB PO SCH (07:56)
--- NOTE | 2017-03-09 09:17 | HHI.PR ---
Subjective Remarks feels better eager for d/c Objective Vitals heart reg lung good air entry abd s/nt ext no edema Vital Signs Date Time Temp Pulse Resp B/P Pulse Ox O2 Delivery O2 Flow Rate FiO2 03/09/17 08:00 97.5 71 20 129/62 99 03/09/17 04:00 97.3 80 16 129/64 98 03/09/17 00:00 97.2 82 18 118/58 98 03/08/17 20:00 Nasal Cannula 3.00 03/08/17 20:00 97.4 97 20 122/58 95 03/08/17 18:00 98.1 105 20 131/63 92 03/08/17 17:30 98.0 103 16 138/96 93 Nasal Cannula 3 03/08/17 17:15 114 20 146/94 92 Nasal Cannula 3 03/08/17 16:56 97.3 107 20 154/68 94 Nasal Cannula 3 03/08/17 16:00 96 Nasal Cannula 2 03/08/17 15:55 88 Nasal Cannula 2 03/08/17 15:55 82 18 88 03/08/17 12:00 97.7 90 18 153/95 90 03/08/17 09:23 91 Nasal Cannula 2.00 03/08/17 03/08/17 03/09/17 15:00 23:00 07:00 Intake Total 0 ml 970 ml 100 ml Output Total 0 ml Balance 0 ml 970 ml 100 ml Intake Oral 0 ml 720 ml 100 ml IV Total 150 ml Other 100 ml Output Urine Total 0 ml Estimated Blood Loss 0 ml # Voids 2 1 0 # Bowel Movements 0 0 0 Result Diagram: 03/08/1715 03/06/17 0615 A/P Problem List: (1) RML pneumonia Status: Acute Plan: Pt with hx nonsmall cell lung ca with met to left frontal lobe s/p chemoradiation with hx recurrence pt has recently been treated for respiratory infections outpt ct concerning for worse rml pna and obstruction bronchoscopy 03/08 shows irregularity to rml/rll bronchus concerning for malignancy and obstruction cont abx steroid taper nebs f/u path and cx's from bronch dvt prophyaxis pt still on heparin but will plan to resume her xarelto at d/c for the hx of pulmonary emboli (2) Non-small cell carcinoma of lung, stage 4 Status: Chronic Plan: - see above (3) Seizure disorder Status: Acute Plan: - keppra Problem Qualifiers (1) RML pneumonia: Qualified Code: J18.1 - Pneumonia of right middle lobe due to infectious organism Minh Worthington MD Mar 09, 2017 09:17
[2017-03-09 09:37] LABS: APTT (PATIENT) 82.1 SEC (24.3-30.1)
--- NOTE | 2017-03-09 10:05 | PD.ONC.PN ---
Subjective Subjective Remarks Afebrile overnight. patient resting comfortably. States her breathing is improved. Objective Data Date Time Temp Pulse Resp B/P Pulse Ox O2 Delivery O2 Flow Rate FiO2 03/09/17 09:38 99 Nasal Cannula 3.00 03/09/17 08:00 97.5 71 20 129/62 99 03/09/17 04:00 97.3 80 16 129/64 98 03/09/17 00:00 97.2 82 18 118/58 98 03/08/17 20:00 Nasal Cannula 3.00 03/08/17 20:00 97.4 97 20 122/58 95 03/08/17 18:00 98.1 105 20 131/63 92 03/08/17 17:30 98.0 103 16 138/96 93 Nasal Cannula 3 03/08/17 17:15 114 20 146/94 92 Nasal Cannula 3 03/08/17 16:56 97.3 107 20 154/68 94 Nasal Cannula 3 03/08/17 16:00 96 Nasal Cannula 2 03/08/17 15:55 88 Nasal Cannula 2 03/08/17 15:55 82 18 88 03/08/17 12:00 97.7 90 18 153/95 90 03/09/17 03/09/17 03/09/17 07:00 15:00 23:00 Intake Total 100 ml Balance 100 ml Result Diagram: 03/08/17 0515 03/06/17 0615 Laboratory Results Laboratory Tests Test 03/09/17 03/09/17 05:40 08:51 Activated Partial 70.0 SEC 82.1 SEC Thromboplast Time Culture Results Microbiology Date/Time Procedure Status Source Growth 03/08/17 16:46 Gram Stain - Final Resulted Fluid Other 03/08/17 16:46 Body Fluid Culture Resulted Fluid Other Pending 03/08/17 16:46 Acid Fast Stain Received Fluid Other Pending 03/08/17 16:46 Mycobacterial Culture Received Fluid Other Pending 03/08/17 16:46 Fungal Smear - Final Resulted Fluid Other NO FUNGAL ELEMENTS SEEN. 03/08/17 16:46 Fungal Culture Resulted Fluid Other Pending Administered Medications Medications (Trade) Dose Ordered Sig/Tabitha Route PRN Reason Start Time Stop Time Status Last Admin Dose Admin Heparin Sodium/ Dextrose (Heparin-D5W Inj) 250 ml @ 0 mls/hr TITRATE IV 03/05/17 16:45 03/09/17 01:13 Methylprednisolone Sodium Succinate 60 mg 60 mg Q12HR IV PUSH 03/05/17 18:00 03/09/17 07:56 Cefepime HCl/ Sodium Chloride (Maxipime Inj/NS Inj) 100 ml @ 200 mls/hr Q8H IV 03/05/17 18:00 03/09/17 01:11 Levetriacetam (Keppra) 500 mg HS PO 03/05/17 21:00 03/08/17 20:49 Lisinopril (Prinivil) 10 mg DAILY PO 03/06/17 09:00 03/09/17 07:56 Pantoprazole Sodium (Protonix) 40 mg Q24H PO 03/06/17 18:00 03/08/17 18:08 Objective Remarks GENERAL: Middle aged female, sitting up in bed in nad. On 3L O2 via NC. SKIN: Warm and dry. HEAD: Normocephalic. EYES: No injection or drainage. NECK: Supple, trachea midline. CARDIOVASCULAR: Regular rate and rhythm RESPIRATORY: diminished at bases, scattered rhonchi GASTROINTESTINAL: Abdomen soft, non-tender, nondistended. EXTREMITIES: No cyanosis NEUROLOGICAL: awake and alert, normal speech. moving all extremities. Assessment/Plan Problem List: (1) Pneumonia Status: Acute Plan: --CT thorax shows progressive right middle lobe infiltrate. appears that she may have bronchial obstruction with postobstructive pneumonia. --If she is found to have a recurrence in the right hilar area, she may well be a candidate for additional radiation therapy. -- cefepime and steroids. --pulmonary following and bronchoscopy on 03/08 showed right middle lobe right lower lobe with obstructing malignancy --radiation oncology following (2) Hx pulmonary embolism Status: Chronic Plan: --on heparin gtt --on xarelto outpatient --dx in December 2015 Assessment 66y/o female with NSCLC admitted with hemoptysis and PNA HISTORY OF PRESENT ILLNESS: 2013 -- developed a focal seizure involving the right hand. found to have a large metastatic lesion involving the left frontal lobe as well as a mass in the right lower lobe of the lung and hilar adenopathy. --01/16/2014-- craniotomy; path= metastatic poorly differentiated adenocarcinoma involving the left frontal lobe. negative for EGFR and ALK. --received stereotactic radiation therapy to the area where the tumor was resected as well as radiation to the lung in July of 2014. --has had a number of recurrences and has received chemotherapy as well as radiation therapy to the mediastinum. 2015 --in December developed small bilateral pulmonary emboli has been taking Xarelto. 2017--started on nivolumab with progressive disease involving the thoracic and lumbar spine. Plan 1. continue antibiotics and steroids 2. reviewed results of bronchoscopy. patient would likely benefit from XRT for the obstructive malignancy in right middle and lower lobes. will discuss with Radiation oncology. d/w Dr. Weston Problem Qualifiers (1) Pneumonia: Qualified Code: J18.9 - Pneumonia due to infectious organism, unspecified laterality, unspecified part of lung Ciara Dunbar Mar 09, 2017 10:05
[2017-03-09 12:45] LABS: APTT (PATIENT) 75.5 SEC (24.3-30.1)
--- NOTE | 2017-03-09 18:03 | HHI.PR ---
Subjective Remarks ALERT NO SOB AT REST Objective Vital Signs Date Time Temp Pulse Resp B/P Pulse Ox O2 Delivery O2 Flow Rate FiO2 03/09/17 16:00 98.3 82 18 134/76 94 03/09/17 12:00 97.5 99 20 123/57 95 03/09/17 09:38 99 Nasal Cannula 3.00 03/09/17 08:00 97.5 71 20 129/62 99 03/09/17 04:00 97.3 80 16 129/64 98 03/09/17 00:00 97.2 82 18 118/58 98 03/08/17 20:00 Nasal Cannula 3.00 03/08/17 20:00 97.4 97 20 122/58 95 I/O 03/08/17 03/08/17 03/08/17 03/09/17 03/09/17 03/09/17 07:00 15:00 23:00 07:00 15:00 23:00 Intake Total 0 ml 970 ml 100 ml 720 ml Output Total 0 ml 700 ml Balance 0 ml 970 ml 100 ml 20 ml Intake Oral 0 ml 720 ml 100 ml 720 ml IV Total 150 ml Other 100 ml Output Urine Total 0 ml 700 ml Estimated Blood Loss 0 ml # Voids 3 2 1 0 2 # Bowel Movements 0 0 0 1 Result Diagram: 03/08/17 0515 03/06/17 0615 Objective Remarks GENERAL: SKIN: Warm and dry. HEAD: Atraumatic. Normocephalic. EYES: Pupils equal and round. No scleral icterus. No injection or drainage. ENT: No nasal bleeding or discharge. Mucous membranes pink and moist. NECK: Trachea midline. No JVD. CARDIOVASCULAR: Regular rate and rhythm. RESPIRATORY: No accessory muscle use. Clear to auscultation. Breath sounds equal bilaterally. GASTROINTESTINAL: Abdomen soft, non-tender, nondistended. Hepatic and splenic margins not palpable. MUSCULOSKELETAL: Extremities without clubbing, cyanosis, or edema. No obvious deformities. NEUROLOGICAL: Awake and alert. No obvious cranial nerve deficits. Motor grossly within normal limits. Five out of 5 muscle strength in the arms and legs. Normal speech. PSYCHIATRIC: Appropriate mood and affect; insight and judgment normal. Assessment and Plan Assessment and Plan ASSESSMENT lung CA PNA NARROW RML , RLL bronchi PLAN ANTIBIOTICS will probably benefit from XRT if that is possible Chyna Clemente MD Mar 09, 2017 18:03
[2017-03-09] MEDS: PANTOPRAZOLE SOD 40 MG DELAYED RELEASE TAB PO SCH (18:24)
[2017-03-09 19:00] LABS: APTT (PATIENT) 79.3 SEC (24.3-30.1)
[2017-03-09] MEDS: levETIRAcetam 500 MG TAB PO SCH (22:41)
[2017-03-10] VITALS: BP 123/65; PULSE 71; RESP 18; TEMP 97.9; O2SAT 97
[2017-03-10] MEDS: CEFEPIME INJ 2,000 MG in SODIUM CHLORIDE 0.9% INJ 100 ML IV SCH ×2 (02:48→09:32)
[2017-03-10 04:00] VITALS: BP 128/72; PULSE 76; RESP 18; O2SAT 98
[2017-03-10] MEDS: HEPARIN-D5W INJ 250 ML IV SCH (06:22)
[2017-03-10 06:30] LABS: APTT (PATIENT) 86.7 SEC (24.3-30.1)
[2017-03-10] MEDS: LISINOPRIL 10 MG TAB PO SCH (07:31)
[2017-03-10] MEDS: RESP: ALBUTEROL 2.5 MG/IPRATROPIUM 0.5 MG NEB (SCH) NEB (07:33)
[2017-03-10 07:36] VITALS: O2SAT 97
[2017-03-10 08:00] VITALS: BP 146/83; PULSE 87; RESP 20; TEMP 98; O2SAT 92
--- NOTE | 2017-03-10 08:18 | HHI.PR ---
Subjective Remarks ALERT NO SOB AT REST Objective Vital Signs Date Time Temp Pulse Resp B/P Pulse Ox O2 Delivery O2 Flow Rate FiO2 03/10/17 07:37 Room Air 03/10/17 07:36 97 Nasal Cannula 21 03/10/17 04:00 76 18 128/72 98 03/10/17 00:00 97.9 71 18 123/65 97 03/09/17 20:00 Nasal Cannula 3.00 03/09/17 20:00 97.9 85 18 127/73 98 03/09/17 16:00 98.3 82 18 134/76 94 03/09/17 12:00 97.5 99 20 123/57 95 03/09/17 09:38 99 Nasal Cannula 3.00 I/O 03/09/17 03/09/17 03/09/17 03/10/17 03/10/17 03/10/17 07:00 15:00 23:00 07:00 15:00 23:00 Intake Total 100 ml 720 ml 480 ml 240 ml Output Total 700 ml Balance 100 ml 20 ml 480 ml 240 ml Intake Oral 100 ml 720 ml 480 ml 240 ml Output Urine Total 700 ml # Voids 0 2 1 1 # Bowel Movements 0 1 0 0 Result Diagram: 03/08/17 0515 03/06/17 0615 Objective Remarks GENERAL: SKIN: Warm and dry. HEAD: Atraumatic. Normocephalic. EYES: Pupils equal and round. No scleral icterus. No injection or drainage. ENT: No nasal bleeding or discharge. Mucous membranes pink and moist. NECK: Trachea midline. No JVD. CARDIOVASCULAR: Regular rate and rhythm. RESPIRATORY: No accessory muscle use. Clear to auscultation. Breath sounds equal bilaterally. GASTROINTESTINAL: Abdomen soft, non-tender, nondistended. Hepatic and splenic margins not palpable. MUSCULOSKELETAL: Extremities without clubbing, cyanosis, or edema. No obvious deformities. NEUROLOGICAL: Awake and alert. No obvious cranial nerve deficits. Motor grossly within normal limits. Five out of 5 muscle strength in the arms and legs. Normal speech. PSYCHIATRIC: Appropriate mood and affect; insight and judgment normal. Assessment and Plan Assessment and Plan ASSESSMENT lung CA PNA NARROW RML , RLL bronchi PLAN ANTIBIOTICS will probably benefit from XRT if that is possible Chyna Clemente MD Mar 10, 2017 08:18
--- NOTE | 2017-03-10 09:12 | HHI.PR ---
Subjective Remarks eager for d/c Objective Vitals heart reg lung improved air entry abd s/nt ext no edema Vital Signs Date Time Temp Pulse Resp B/P Pulse Ox O2 Delivery O2 Flow Rate FiO2 03/10/17 08:00 98.0 87 20 146/83 92 03/10/17 07:37 Room Air 03/10/17 07:36 97 Nasal Cannula 21 03/10/17 04:00 76 18 128/72 98 03/10/17 00:00 97.9 71 18 123/65 97 03/09/17 20:00 Nasal Cannula 3.00 03/09/17 20:00 97.9 85 18 127/73 98 03/09/17 16:00 98.3 82 18 134/76 94 03/09/17 12:00 97.5 99 20 123/57 95 03/09/17 09:38 99 Nasal Cannula 3.00 03/09/17 03/09/17 03/10/17 15:00 23:00 07:00 Intake Total 720 ml 480 ml 240 ml Output Total 700 ml Balance 20 ml 480 ml 240 ml Intake Oral 720 ml 480 ml 240 ml Output Urine Total 700 ml # Voids 2 1 1 # Bowel Movements 1 0 0 Result Diagram: 03/08/17 0515 03/06/17 0615 A/P Problem List: (1) RML pneumonia Status: Acute Plan: Pt with hx nonsmall cell lung ca with met to left frontal lobe s/p chemoradiation with hx recurrence pt has recently been treated for respiratory infections outpt ct concerning for worse rml pna and obstruction bronchoscopy 03/08 shows irregularity to rml/rll bronchus concerning for malignancy and obstruction Pt eager for d/c seen by rad onc who will f/u on or Thursday once path returns and plan for radiation f/u med/onc prednisone taper finish abx cont abx stop heparin and resume her xarelto for the hx of pulmonary emboli (2) Non-small cell carcinoma of lung, stage 4 Status: Chronic Plan: - see above (3) Seizure disorder Status: Acute Plan: - keppra Problem Qualifiers (1) RML pneumonia: Qualified Code: J18.1 - Pneumonia of right middle lobe due to infectious organism Minh Worthington MD Mar 10, 2017 09:12
--- NOTE | 2017-03-10 09:16 | HHI.DCPOC ---
Discharge Care Plan Diagnosis: (1) Lung cancer (2) Pneumonia Goals to Promote Your Health * To prevent worsening of your condition and complications * To maintain your health at the optimal level Directions to Meet Your Goals Take your medications as prescribed Follow your dietary instruction Follow activity as directed Keep your appointments as scheduled Take your immunizations and boosters as scheduled If your symptoms worsen call your PCP, if no PCP go to Urgent Care Center or Emergency Room Smoking is Dangerous to Your Health. Avoid second hand smoke Call the 24-hour hour crisis hotline for domestic abuse at Minh Worthington MD Mar 10, 2017 09:16
[2017-03-10] MEDS ORDERED: AUGM500T7 PO (09:21)
[2017-03-10] MEDS ORDERED: PRED10 PO (09:21)
[2017-03-10] MEDS ORDERED: DEXA1TAB PO (09:21)
[2017-03-10] MEDS: methylPREDNISolone SOD SUCC 125 MG/2 ML VIAL IV PUSH SCH (09:32)
[2017-03-10] MEDS ORDERED: SODIUM CHLORIDE 0.9% FLUSH 10 ML FLUSH IV FLUSH PRN (11:00)
--- NOTE | 2017-03-10 11:27 | MB ---
cc: ADAM NEWMAN M.D. DATE OF CONSULTATION 03/10/2017 Joanne Romero was admitted to the hospital with shortness of breath and a known lung cancer. She had evidence of some consolidation and collapse of the segment of her right lung. She underwent a bronchoscopy and I discussed this with Dr. Clemente today. He indicated that there was definite tumor and narrowing in the airways going to the bronchus intermedius. The superior branch was clear but the two lower branches were involved with tumor. This lady has had previous radiation treatment on two occasions. Unfortunately there is sign of progression. I will discuss this with Dr. Weston but it may be practical for us to give her a short intense dose of radiation treatment to the small volume. There may be some overlap with her previous radiation soto and so because of this there is some associated risk but her last treatment was two years ago so this is in her favor. I have discussed with this with her. I have discussed the risks and today she was accepting of those and is willing to proceed. As mentioned, I will discuss this with Dr. Weston, but we tentatively have her on our simulation schedule for of this week. She does not need to be in the hospital for our purposes. MD VIVIAN Johnson/DALJIT /9:11 AM /11:22 AM
--- NOTE | 2017-04-13 11:13 | HHI.DS ---
Discharge Summary Admission Date Mar 05, 2017 at 15:10 Discharge Date: Mar 10, 2017 Admitting Diagnosis pneumonia (1) RML pneumonia Diagnosis: Principal (2) Non-small cell carcinoma of lung, stage 4 (3) Seizure disorder Diagnosis: Secondary Hospital Course Pt with hx nonsmall cell lung ca with met to left frontal lobe s/p chemoradiation with hx recurrence pt has recently been treated for respiratory infections outpt ct concerning for worse rml pna and obstruction bronchoscopy 03/08 shows irregularity to rml/rll bronchus concerning for malignancy and obstruction seen by rad onc who will f/u on or Thursday once path returns and plan for radiation f/u med/onc prednisone taper...finish abx cont abx stop heparin and resume her xarelto for the hx of pulmonary emboli Pt Condition on Discharge: Stable Discharge Disposition: Discharge Home Discharge Instructions DIET: Follow Instructions for: As Tolerated, No Restrictions Activities you can perform: Regular-No Restrictions Follow up Referrals: Oncology - [address] pradhan Oncology - 2-[address] Nino New Medications: Amoxicillin-Clavulanate (Augmentin) 500-125 mg Tab 500 MG PO Q8H Infection Days 7 Ref 0 TAB Prednisone (Prednisone) 10 Mg Tab 10 MG PO DIRECTED 40mg po daily x 3 days, 20mg po daily x 3 days, 10mg po daily x 4 days pneumonia Days 10 Ref 0 TAB Changed Medications: Dexamethasone (Dexamethasone) 1 Mg Tab 1 MG PO DAILY resume the next day after your last dose of prednisone malignancy #0 Ref 0 TAB (Changed from: resume in 11 days or 1 day after last dose of prednisone) Continued Medications: B-Complex W/ Folic Acid (Super B Complex Maxi) 1 Tab 1 TAB PO DAILY TAB Ipratropium Neb (Ipratropium Neb) 0.5 Mg/2.5 Ml Amp 0.5 MG NEB Q6HR NEB Breathing Treatment Days 30 Ref 6 NEBULE Levetiracetam (Keppra) 500 Mg Tab 500 MG PO HS Seizure Control #30 Ref 3 TAB Lisinopril (Lisinopril) 10 Mg Tab 10 MG PO DAILY htn #30 Ref 3 TAB Pantoprazole (Pantoprazole) 40 Mg Tab 40 MG PO DAILY Reflux #0 Ref 0 TAB Rivaroxaban (Xarelto) 10 Mg Tab 10 MG PO DAILY Blood Clot Prevention Ref 0 TAB Minh Worthington MD April 13, 2017 11:13
== END 2017-03-10 12:55 | disposition home or self-care (01) | DRG 167 ==
LOC: NEPC 14:36 → NEDA 15:10 → N04A 19:15
PROVIDERS: ADMIT Hospitalist; ATTEND Hospitalist
PROC: 0BB88ZX Excision of Left Upper Lobe Bronchus, Via Natural or Artificial Opening Endoscopic, Diagnostic (ICD-10-PCS; 2017-03-08)
PROC: 0BB78ZX Excision of Left Main Bronchus, Via Natural or Artificial Opening Endoscopic, Diagnostic (ICD-10-PCS; 2017-03-08)
PROC: 0BBJ8ZX Excision of Left Lower Lung Lobe, Via Natural or Artificial Opening Endoscopic, Diagnostic (ICD-10-PCS; principal; 2017-03-08 16:34)
DX: J18.9 Pneumonia, unspecified organism (principal); C79.31 Secondary malignant neoplasm of brain; C77.9 Secondary and unspecified malignant neoplasm of lymph node, unspecified; J44.0 Chronic obstructive pulmonary disease with (acute) lower respiratory infection; C79.51 Secondary malignant neoplasm of bone; G40.89 Other seizures; R47.01 Aphasia; Z85.118 Personal history of other malignant neoplasm of bronchus and lung; Z92.3 Personal history of irradiation; Z92.21 Personal history of antineoplastic chemotherapy; Z87.891 Personal history of nicotine dependence; Z86.711 Personal history of pulmonary embolism; Z79.01 Long term (current) use of anticoagulants
CPT/HCPCS: 71020; 80053; 85025; 85027; 85610; 85730; 87015; 87070; 87102; 87116; 87205; 87206; 88112; 88305; 94640; 94664; 99232; 99284; C9113; J0692; J1642; J1644; J2405; J2930; J7613